=== PATIENT | female | born 1960 | race Caucasian/White ===

== ENCOUNTER → 2016-08-22 | Outpatient (CLI) | payer BC ==
--- NOTE | 2016-08-26 07:25 | MM ---
Reason for exam: screening (asymptomatic). Last mammogram was performed 1 year ago. History: Patient is postmenopausal. Family history of premenopausal breast cancer in maternal cousin at age 25. Took estrogen for 1 year 6 months beginning at age 38. Physical Findings: A clinical breast exam by your physician is recommended on an annual basis and results should be correlated with mammographic findings. MG 3D Screening Mammo W/Cad Bilateral CC and MLO view(s) were taken. Prior study comparison: August 09, 2015, bilateral MG screening mammo w CAD. August 02, 2014, bilateral MG screening mammo w CAD. July 15, 2013, bilateral MG screening mammo w CAD. There are scattered fibroglandular densities. No significant changes when compared with prior studies. ASSESSMENT: Negative, BI-RAD 1 RECOMMENDATION: Routine screening mammogram of both breasts in 1 year.
== END | disposition home or self-care (01) ==
LOC: RADMAMWWP 14:30
PROVIDERS: ATTEND Internal Medicine Geriatric Medicine
DX: Z12.31 Encounter for screening mammogram for malignant neoplasm of breast (principal)
CPT/HCPCS: 77063; G0202

== ENCOUNTER → 2016-11-02 | Outpatient (CLI) | payer BC ==
[2016-11-02 09:13] LABS: Basophils % (A) 1 %; CH 31.7; CHCM 33.8; Eosinophils # (A) 0.1 k/uL (0-0.7); Eosinophils % (A) 3 %; HCT 41.9 % (34.0-46.0); HDW 2.77; HGB 14.1 gm/dL (11.4-16.0); Luc # (Auto) 0.09; Luc % (Auto) 2; Lymphocytes # (A) 1.6 k/uL (1.0-4.8); Lymphocytes % (A) 38 %; MCH 31.8 pg (25.0-35.0); MCHC 33.7 g/dL (31.0-37.0); MCV 94.3 fL (80.0-100.0); Mean Platelet Volume 6.6; Monocytes # (A) 0.2 k/uL (0-1.0); Monocytes % (A) 6 %; Neutrophils # (A) 2.2 k/uL (1.3-7.7); Neutrophils % (A) 52 %; RBC 4.44 m/uL (3.80-5.40); RDW 13.1 % (11.5-15.5); WBC 4.3 k/uL (3.8-10.6); WBC (Perox) 4.43
[2016-11-02 09:30] LABS: ALT 38 U/L (9-52); AST 25 U/L (14-36); Alkaline Phosphatase 55 U/L (38-126); Anion Gap 10 mmol/L; Blood Urea Nitrogen 12 mg/dL (7-17); Calcium 10.2 mg/dL (8.4-10.2); Carbon Dioxide 28 mmol/L (22-30); Chloride 105 mmol/L (98-107); Cholesterol 204 mg/dL (<200); Glucose 94 mg/dL (74-99); HDL Cholesterol 63 mg/dL (40-60); Non-African American GFR(MDRD) >60 (>60 ml/min/1.73 sqM); Potassium 4.7 mmol/L (3.5-5.1); Sodium 143 mmol/L (137-145); Total Bilirubin 0.4 mg/dL (0.2-1.3); Total Protein 6.9 g/dL (6.3-8.2)
[2016-11-02 11:41] LABS: Hemoglobin A1C 5.3 % (4.2-6.1)
== END | disposition home or self-care (01) ==
LOC: LABWHC1 08:41
PROVIDERS: ATTEND Internal Medicine Geriatric Medicine
DX: E78.5 Hyperlipidemia, unspecified (principal); I10 Essential (primary) hypertension; R79.89 Other specified abnormal findings of blood chemistry
CPT/HCPCS: 36415; 80053; 80061; 83036; 84439; 84443; 85025

== ENCOUNTER 2017-04-06 18:52 | Observation (INO) | payer BC ==
[2017-04-06] MEDS ORDERED: MORPHINE SULFATE 4 MG/ML SYRINGE IV STA (19:32)
[2017-04-06] MEDS ORDERED: ONDANSETRON 4 MG/2 ML VIAL IVP STA (19:32)
[2017-04-06] MEDS ORDERED: SODIUM CHLORIDE 0.9% 1,000 ML IV STA (19:32)
[2017-04-06] MEDS ORDERED: ASPIRIN 81 MG PO STA (19:32)
[2017-04-06] MEDS ORDERED: NITROGLYCERIN OINT 1 INCH/GM PACKET TOPICAL STA (19:32)
[2017-04-06 19:55] LABS: Basophils % (A) 1 %; Eosinophils # (A) 0.1 k/uL (0-0.7); Eosinophils % (A) 2 %; HGB 12.8 gm/dL (11.4-16.0); Lymphocytes # (A) 2.7 k/uL (1.0-4.8); Lymphocytes % (A) 43 %; MCH 30.8 pg (25.0-35.0); MCHC 32.7 g/dL (31.0-37.0); MCV 94.2 fL (80.0-100.0); Mean Platelet Volume 6.9; Monocytes # (A) 0.3 k/uL (0-1.0); Monocytes % (A) 5 %; Neutrophils % (A) 49 %; Platelet Count 225 k/uL (150-450); RBC 4.14 m/uL (3.80-5.40); RDW 12.8 % (11.5-15.5); WBC 6.2 k/uL (3.8-10.6)
--- NOTE | 2017-04-06 19:56 | XR ---
EXAMINATION TYPE: XR chest 2V DATE OF EXAM: 04/06/2017 COMPARISON: 01/16/2015 HISTORY: Chest pain and left arm heaviness TECHNIQUE: Frontal and lateral views of the chest are obtained. FINDINGS: There is no focal air space opacity, pleural effusion, or pneumothorax seen. The cardiac silhouette size is enlarged. The osseous structures are intact. Postsurgical changes of the right d istal clavicle or chronic acromioclavicular separation is again noted. Mild multilevel degenerative c hanges of the thoracic spine are seen. IMPRESSION: Cardiomegaly with no acute pulmonary process.
[2017-04-06 19:58] LABS: D-Dimer 0.28 mg/L FEU (<0.60)
[2017-04-06 20:02] LABS: Prothrombin Time 9.7 sec (9.0-12.0)
[2017-04-06 20:03] LABS: Partial Thromboplastin Time 22.5 sec (22.0-30.0)
[2017-04-06 20:10] LABS: ALT 33 U/L (9-52); AST 29 U/L (14-36); Albumin 4.2 g/dL (3.5-5.0); Alkaline Phosphatase 63 U/L (38-126); Anion Gap 12 mmol/L; Blood Urea Nitrogen 15 mg/dL (7-17); Carbon Dioxide 26 mmol/L (22-30); Chloride 105 mmol/L (98-107); Glucose 97 mg/dL (74-99); Potassium 3.5 mmol/L (3.5-5.1); Sodium 143 mmol/L (137-145); Total Bilirubin 0.2 mg/dL (0.2-1.3)
[2017-04-06 20:15] LABS: Creatine Kinase 89 U/L (30-135)
--- NOTE | 2017-04-06 20:27 | ED ---
Chest Pain HPI - General Chief Complaint: Chest Pain Stated Complaint: Chest pain Time Seen by Provider: 04/06/17 19:12 Source: patient Mode of arrival: wheelchair Limitations: no limitations - History of Present Illness Initial Comments: 56 years old female presented with the chest pain that started about Ervin 30 minutes prior to arrival her blood pressure was quite high he was 206/89 chest pain and some numbness and some pain in the left arm she stating chest pain is still 6/10 and she is nauseous no vomiting she has some cold sweats. She does have a history of coronary artery disease in the family her brother at the age of 51 with a massive heart attack mom and the cornea artery disease at age of 60 and she has a history of hypertension. Denies any headaches no blurred vision no stiff neck is complaining about the chest pain gets worse with deep breaths - Related Data Home Medications Medication Instructions Recorded Confirmed Lisinopril [Zestril] 10 mg PO DAILY 11/12/14 04/06/17 Calcium Carbonate [Calcium] 600 mg PO DAILY 04/06/17 04/06/17 Simvastatin [Zocor] 40 mg PO DAILY 04/06/17 04/06/17 Tiotropium 18 Mcg/Puff [Spiriva] 1 cap INHALATION RT-DAILY 04/06/17 04/06/17 Allergies Allergy/AdvReac Type Severity Reaction Status Date / Time azithromycin Allergy Unknown Verified 04/06/17 19:34 Penicillins Allergy Unknown Verified 04/06/17 19:34 Sulfa (Sulfonamide Allergy Unknown Verified 04/06/17 19:34 Antibiotics) Review of Systems ROS Statement: Those systems with pertinent positive or pertinent negative responses have been documented in the HPI. ROS Other: All systems not noted in ROS Statement are negative. EKG Findings - EKG Comments: EKG Findings:: I'm EKG is a normal sinus rhythm with some sinus arrhythmia ventricular rate is 70 DC interval is 134 QRS duration is 80 QT/QTC 390/425 of this EKG reveals some T-wave inversion in lead [address] elevation or ST depression noticed in this EKG noticed. The R-wave Past Medical History Past Medical History: Hypertension Additional Past Medical History / Comment(s): Migraines History of Any Multi-Drug Resistant Organisms: None Reported Past Surgical History: Section, Hysterectomy, Orthopedic Surgery Additional Past Surgical History / Comment(s): Right shoulder, right foot, right knee Past Psychological History: No Psychological Hx Reported Smoking Status: Never smoker Past Alcohol Use History: None Reported Past Drug Use History: None Reported General Exam - General Exam Comments Initial Comments: General: The patient is awake and alert, in moderate distress Skin: Skin is warm and dry and no rashes or lesions are noted. Eye: Pupils are equal, round and reactive to light, extra-ocular movements are intact; there is normal conjunctiva bilaterally. Ears, nose, mouth and throat: There are moist mucous membranes and no oral lesions. Neck: The neck is supple, there is no tenderness or JVD. Cardiovascular: There is a regular rate and rhythm. No murmur, rub or gallop is appreciated. Respiratory: To auscultation bilateral, no wheezing no rhonchi no distress respiratory lemos noticed Gastrointestinal: Soft, non-distended, non-tender abdomen without masses or organomegaly noted. There is no rebound or guarding present. Bowel sounds are unremarkable. Back: There is no tenderness to palpation in the midline. There is no obvious deformity. Musculoskeletal: Normal ROM, no tenderness, There is no pedal edema. There is no calf tenderness or swelling. No cords were appreciated. Neurological: CN II-XII intact, Cranial nerves III through XII are intact. There are no obvious motor or sensory deficits. Coordination appears grossly intact. Speech is normal. Psychiatric: Cooperative, appropriate mood & affect, normal judgment. Limitations: no limitations Course Vital Signs 04/06/17 04/06/17 18:53 19:52 Temperature 97 F L Pulse Rate 102 H 82 Respiratory 20 18 Rate Blood Pressure 206/89 172/83 O2 Sat by Pulse 99 98 Oximetry Is reassessed at term 2019, EKG is unremarkable d-dimer is unremarkable CBC and compressive metabolic panel absolutely normal chest x-ray showed mild cardiomegaly troponin is still pending His back which is negative patient still has a chest pain it's a lot better is 2 /10 considering that she needs to be heparinized to see cardiology in the morning spoke with the Dr. 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, on arrival to the ER blood pressure was 205 systolic chest pain was 6/ 10 and she got some nitro she got some aspirin and now at 2030 she still has a chest pain and very similar 1-03/22 she has a family history she lost her brother to myocardial infarction at the age of 51 and she 76 now she has a lot of secondhand secondhand smoke exposure from her family, considering her chest pain a very high blood pressure with the concern of ischemic heart disease she will be heparinized cardiology be consulted since chest pain is better instead of nitro infusion she will just use the nitro paste, this was discussed with the Dr. Weber she agrees with the plan Disposition Clinical Impression: Chest pain, Hypertension Disposition: ADMITTED IP TO THIS HOSP Condition: Good Referrals: Dieudonne Mccracken MD [Primary Care Provider] - 1-2 days
[2017-04-06 20:28] LABS: Creatine Kinase MB 0.7 ng/mL (0.0-2.4); Troponin I <0.012 ng/mL (0.000-0.034)
[2017-04-06] MEDS ORDERED: HEPARIN SODIUM,PORCINE 5,000 UNIT/ML 1 ML VIAL IV ONE (20:38)
[2017-04-06] MEDS ORDERED: NITROGLYCERIN SL TABS 0.4 MG TAB SUBLINGUAL PRN (20:38)
[2017-04-06] MEDS ORDERED: HEPARIN SOD,PORK IN 0.45% NACL 25,000 UNIT in 0.45% NACL 1 500ML.BAG IV SCH (20:45)
[2017-04-06] MEDS ORDERED: LISINOPRIL 10 MG TAB PO STA (20:56)
[2017-04-07] MEDS ORDERED: ACETAMINOPHEN TAB 325 MG TAB PO PRN (01:10)
[2017-04-07 02:47] LABS: Creatine Kinase 63 U/L (30-135)
[2017-04-07 03:00] LABS: Creatine Kinase MB 0.5 ng/mL (0.0-2.4); Troponin I <0.012 ng/mL (0.000-0.034)
[2017-04-07 07:27] LABS: Cholesterol 137 mg/dL (<200); HDL Cholesterol 43 mg/dL (40-60); LDL Cholesterol,Calculated 75 mg/dL (0-99); Triglycerides 93 mg/dL (<150)
[2017-04-07 07:37] LABS: Creatine Kinase 64 U/L (30-135)
[2017-04-07 07:50] LABS: Troponin I <0.012 ng/mL (0.000-0.034)
[2017-04-07 07:58] LABS: Creatine Kinase MB 0.9 ng/mL (0.0-2.4)
[2017-04-07 08:04] VITALS: RESP 18
[2017-04-07] MEDS ORDERED: LISINOPRIL 10 MG TAB PO SCH (09:00)
[2017-04-07] MEDS ORDERED: CALCIUM CARBONATE 500 MG CHEWABLE PO SCH (09:00)
[2017-04-07] MEDS ORDERED: ASPIRIN 325 MG TAB PO SCH (09:00)
[2017-04-07] MEDS ORDERED: ATORVASTATIN 20 MG TAB PO SCH (09:00)
[2017-04-07] MEDS ORDERED: ASPIRIN 81 MG PO SCH (09:00)
[2017-04-07] MEDS: IPRATROPIUM 0.5 MG/2.5 ML NEBU INHALATION SCH ×2 (09:01→12:27)
--- NOTE | 2017-04-07 10:19 | CONS ---
CONSULTATION Ms. Rodriguez is a 56-year-old female, known history of hypertension, hyperlipidemia, family history of coronary artery disease, who presented with symptoms of chest discomfort radiating to the left shoulder. The discomfort started yesterday on and off for over an hour and came into the emergency room. She has no clear associated dyspnea. No dizziness. No palpitations at home. She checked her blood pressure and was elevated. She is average in exercise tolerance, has no exertional chest discomfort. She has no prior history of cardiac disease. No history of PND, orthopnea, or peripheral edema. Her coronary risk factors are positive for hypertension, hyperlipidemia, family history of premature coronary disease in her mother and her brother. She is a nonsmoker. MEDICATION: At home include Zocor 40 mg daily, lisinopril 10 mg daily, calcium and Spiriva. REVIEW OF SYSTEMS: RESPIRATORY system: She had a cough today, but not yesterday. She has no history of documented asthma, emphysema. No bronchitis. GI system: No recent GI bleeding. No peptic ulcer disease. system: No dysuria or hematuria. Nervous system: No history of stroke or seizure. PHYSICAL EXAMINATION: She is a 56-year-old female, alert, oriented, in no apparent distress. Blood pressure 125/70 with a heart in 70, afebrile. HEAD: Normocephalic. Eyes: Sclerae anicteric. Neck: Good carotid upstroke. No bruit. No jugular venous distention. LUNGS: Clear to auscultation. HEART: Regular rhythm S1, S2. No S3, no S4. No rub. Chest wall with mild chest wall tenderness over the left side. ABDOMEN: Soft, nontender, obese. No organomegaly. EXTREMITIES: No edema. Intact distal pulses. LAB DATA: Lab data revealed troponin less than 0.012 for 3 samples. Cholesterol 137, LDL of 75, BUN and creatinine 15 and 0.8. Potassium 3.5, hemoglobin of 12.8. EKG revealed a sinus mechanism. Borderline left axis deviation, poor R wave progression. Chest x-ray revealed no acute infiltrate. IMPRESSION: 1. Chest discomfort of unclear etiology in a patient with coronary risk factors. 2. Hypertension. 3. Hyperlipidemia. 4. Family history of premature coronary artery disease. RECOMMENDATIONS: I will stop the heparin and I will proceed with stress echocardiogram. If there is no evidence of stress-induced ischemia, then no further cardiac workup will be needed. Thank you for this consult. We will follow with you. MMNETTAL / IJN: [id number] /
[2017-04-07 12:11] VITALS: BP 107/62; PULSE 64; TEMP 98
--- NOTE | 2017-04-07 12:11 | ECHOF ---
Referral Reason:cp MEASUREMENTS -------- HEIGHT: 157.5 cm WEIGHT: 72.6 kg BP: 125/75 RVIDd: 2.7 cm (< 3.3) IVSd: 0.9 cm (0.6 - 1.1) LVIDd: 4.4 cm (3.9 - 5.3) LVPWd: 0.9 cm (0.6 - 1.1) IVSs: 1.5 cm LVIDs: 2.4 cm LVPWs: 1.6 cm LAESV Index (A-L): 21.78 ml/m Ao Diam: 2.7 cm (2.0 - 3.7) AV Cusp: 1.4 cm (1.5 - 2.6) LA Diam: 3.5 cm (2.7 - 3.8) EPSS: 0.3 cm MV E Ziggy: 1.04 m/s MV DecT: 240 ms MV A Ziggy: 0.94 m/s MV E/A Ratio: 1.11 RAP: 5.00 mmHg RVSP: 36.54 mmHg MV EF SLOPE: 94.68 mm/s (70 - 150) MV EXCURSION: 1.47 cm (> 18.000) FINDINGS -------- Sinus rhythm. This was a technically adequate study. The left ventricular size is normal. Left ventricular wall thickness is normal. Overall left vent ricular systolic function is normal with, an EF between 55 - 60 %. The right ventricle is normal in size and function. Normal LA size by volume 22+/-6 ml/m2. The right atrium is normal in size. The aortic valve is trileaflet, and appears structurally normal. No aortic stenosis or regurgitation. The mitral valve is normal. Mild mitral regurgitation is present. Mild tricuspid regurgitation present. There is mild pulmonary hypertension. The right ventricular systolic pressure, as measured by Doppler, is 36.54mmHg. Trace/mild (physiologic) pulmonic regurgitation. The aortic root size is normal. Normal inferior vena cava with normal inspiratory collapse consistent with estimated right atrial pre ssure of 5 mmHg. There is no pericardial effusion. CONCLUSIONS -------- 1. Sinus rhythm. 2. This was a technically adequate study. 3. The left ventricular size is normal. 4. Left ventricular wall thickness is normal. 5. Overall left ventricular systolic function is normal with, an EF between 55 - 60 %. 6. Normal LA size by volume 22+/-6 ml/m2. 7. The aortic valve is trileaflet, and appears structurally normal. No aortic stenosis or regurgitati on. 8. Mild mitral regurgitation is present. 9. Mild tricuspid regurgitation present. 10. There is mild pulmonary hypertension. 11. Trace/mild (physiologic) pulmonic regurgitation. 12. The aortic root size is normal. 13. There is no pericardial effusion. [facility] [employer]: Christiano Hargrove RDCS
--- NOTE | 2017-04-07 13:10 | ECHOS ---
STRESS ECHOCARDIOGRAM DATE OF SERVICE: 04/07/2017 INDICATIONS: MEDICATIONS: BASELINE HEART RATE: 69 BASELINE BLOOD PRESSURE: 128/76 MAXIMUM HEART RATE: 155 MAXIMUM BLOOD PRESSURE: 194/83 85% MPHR: 139 100% MPHR: 163 METS: 8.3 MAXIMUM STAGE REACHED: III TOTAL EXERCISE TIME: 7 minutes CLINICAL INFORMATION: Baseline rhythm is sinus mechanism, rate 69, normal axis, intervals, poor R progression. Baseline blood pressure 128/76 mmHg. Patient exercised on Zan protocol for 7 minutes reaching peak rate of 155 beats per minute, which is equal to 95% maximum predicted heart rate. Peak blood pressure 194/83 mmHg. Test was terminated secondary to fatigue. There was no chest pain. Electrocardiograph monitoring revealed no evidence of diagnostic ischemic ST deviation. Baseline echocardiogram revealed normal wall thickness and motion. At peak exercise, there was normal wall motion augmentation with no hypokinesis or dyskinesis. CONCLUSION: 1. Average exercise tolerance with normal electrocardiograph response to exercise. 2. Normal stress echocardiogram with no evidence of stress induced ischemia. MMODL / IJN: [id number] /
--- NOTE | 2017-04-08 08:55 | P.HPIM ---
History of Present Illness H&P Date: 04/07/17 Chief Complaint: Chest pain This is a 56-year-old female patient of Dr. Mccracken with past medical history of hypertension, migraine headaches. Patient states that she was sitting down and will pain pills on her tablet and she developed chest pain. She denies any stress. She said they had up birthday green party and had people over all day and everything was good. She checked her blood pressure was 220/106. She is on lisinopril but denies missing any dosing. She came into [facility] emergency center for evaluation. CBC and chemistry panel were within normal limits. Troponin negative on 3 draws. Triglycerides 93, cholesterol 137, LDL 75, HDL 43. Patient was placed on the observation unit and seen by Dr. Cabrera. Echocardiogram reveals EF of 55-60%, mild tricuspid regurgitation, mild mitral regurgitation. Patient underwent a stress echocardiogram that was negative and patient will be discharged home today in stable condition. Review of Systems All systems: negative Constitutional: Denies anorexia, Denies chills, Denies fatigue, Denies fever, Denies lethargy, Denies malaise, Denies night sweats, Denies poor appetite, Denies sweats, Denies weakness, Denies weight loss Eyes: denies blurred vision, denies pain Ears, nose, mouth and throat: Denies dental pain, Denies headache, Denies mouth pain, Denies sore throat Cardiovascular: Reports chest pain, Reports high blood pressure, Denies decreased exercise tolerance, Denies dyspnea on exertion, Denies edema, Denies irregular heart beat, Denies leg edema, Denies lightheadedness, Denies paroxysmal nocturnal dyspnea, Denies shortness of breath, Denies syncope Respiratory: Denies congestion, Denies cough, Denies cough with sputum, Denies dyspnea, Denies excessive sputum, Denies hemoptysis, Denies home oxygen, Denies wheezing Gastrointestinal: Denies abdominal pain, Denies diarrhea, Denies nausea, Denies vomiting Genitourinary: Denies dysuria, Denies hematuria Musculoskeletal: Denies myalgias Integumentary: Denies pruritus, Denies rash Neurological: Denies numbness, Denies weakness Psychiatric: Denies anxiety, Denies depression Endocrine: Denies fatigue, Denies weight change Past Medical History Past Medical History: Hypertension Additional Past Medical History / Comment(s): Migraines History of Any Multi-Drug Resistant Organisms: None Reported Past Surgical History: Section, Hysterectomy, Orthopedic Surgery Additional Past Surgical History / Comment(s): Right shoulder, right foot, arthroscopy right knee x 3 , right elbow Past Anesthesia/Blood Transfusion Reactions: No Reported Reaction Past Psychological History: No Psychological Hx Reported Smoking Status: Never smoker Past Alcohol Use History: None Reported Additional Past Alcohol Use History / Comment(s): Patient is a lifelong nonsmoker. She denies any medical marijuana, marijuana, street drug use. She drinks alcohol occasionally. Past Drug Use History: None Reported - Past Family History Mother Family Medical History: Myocardial Infarction (SD) Additional Family Medical History / Comment(s): Mother had several MIs by the time she was 60 as well as stroke. Brother(s) Family Medical History: Myocardial Infarction (SD) Additional Family Medical History / Comment(s): Patient has 1 brother that at age 51 from a myocardial infarction. Patient has a second brother with no major medical problems. Sister(s) Additional Family Medical History / Comment(s): Patient has one sister with cervical cancer. Father Additional Family Medical History / Comment(s): Father at age 37 from end- stage renal disease secondary to a staph infection as a child. Patient has 3 sons and one has Crohn's. Medications and Allergies Home Medications Medication Instructions Recorded Confirmed Type Lisinopril [Zestril] 10 mg PO DAILY 11/12/14 04/06/17 History Calcium Carbonate [Calcium] 600 mg PO DAILY 04/06/17 04/06/17 History Simvastatin [Zocor] 40 mg PO DAILY 04/06/17 04/06/17 History Tiotropium 18 Mcg/Puff [Spiriva] 1 cap INHALATION RT-DAILY 04/06/17 04/06/17 History Allergies Allergy/AdvReac Type Severity Reaction Status Date / Time azithromycin Allergy Unknown Verified 04/06/17 19:34 Penicillins Allergy Unknown Verified 04/06/17 19:34 Sulfa (Sulfonamide Allergy Unknown Verified 04/06/17 19:34 Antibiotics) Physical Exam Vitals: Vital Signs Temp Pulse Pulse Resp BP BP Pulse Ox 04/07/17 12:00 98.0 F 64 18 107/62 98 04/07/17 09:13 72 04/07/17 09:03 72 04/07/17 08:00 97.5 F L 74 18 125/75 99 04/07/17 03:40 97.6 F 69 16 113/56 97 04/07/17 03:16 65 16 04/06/17 23:40 66 16 04/06/17 23:36 97.7 F 67 16 108/57 98 04/06/17 22:15 76 16 04/06/17 21:52 97.7 F 77 16 142/73 99 04/06/17 21:21 97.7 F 77 18 164/79 99 04/06/17 19:52 82 18 172/83 98 04/06/17 18:53 97 F L 102 H 20 206/89 99 Intake and Output 04/07/17 04/07/17 04/07/17 06:59 14:59 22:59 Intake Total 240 Balance 240 Intake: Oral 240 Other: # Voids 3 Gen: This is a 56-year-old female. She is sitting up in bed and appears to be comfortable and in no acute distress. HEENT: Head is atraumatic, normocephalic. Pupils equal, round. Sclerae is anicteric. NECK: Supple. No JVD. No lymphadenopathy. No thyromegaly. LUNGS: Clear to auscultation. No wheezes or rhonchi. No intercostal retractions. HEART: Regular rate and rhythm. No murmur. ABDOMEN: Soft. Bowel sounds are present. No masses. No tenderness. EXTREMITIES: No pedal edema. No calf tenderness. NEUROLOGICAL: Patient is awake, alert and oriented x3. Cranial nerves 2 through 12 are grossly intact. Results CBC & Chem 7: 04/06/17 19:16 04/06/17 19:16 Labs: Abnormal Lab Results - Last 24 Hours (Table) 04/07/17 Range/Units 03:29 APTT 69.4 H (22.0-30.0) sec Thrombosis Risk Factor Assmnt - Choose All That Apply Each Factor Represents 1 point: Age 41-60 years, Obesity (BMI >25) Thrombosis Risk Factor Assessment Total Risk Factor Score: 2 Thrombosis Risk Factor Assessment Level: Low Risk Assessment and Plan Plan: 1. Uncontrolled hypertension. Blood pressure has been improved with no change in medication. 2. Chest pain most likely secondary to hypertension. 3. History of migraine headaches, stable. Patient placed on the observation unit. Discharge plan: Return home Impression and plan of care have been directed as dictated by the signing physician. Shahana Ann nurse practitioner acting as scribe for signing physician.
== END 2017-04-07 15:29 | disposition home or self-care (01) ==
LOC: EC 18:52 → 3OBS 20:38
PROVIDERS: ADMIT Family Medicine; ATTEND Family Medicine
DX: R07.89 Other chest pain (principal); R07.9 Chest pain, unspecified; I10 Essential (primary) hypertension; R20.0 Anesthesia of skin; M79.602 Pain in left arm; R11.0 Nausea; R05 Cough; R61 Generalized hyperhidrosis; E78.5 Hyperlipidemia, unspecified; Z77.22 Contact with and (suspected) exposure to environmental tobacco smoke (acute) (chronic); G43.909 Migraine, unspecified, not intractable, without status migrainosus; E66.9 Obesity, unspecified; Z68.29 Body mass index [BMI] 29.0-29.9, adult; I08.1 Rheumatic disorders of both mitral and tricuspid valves; Z79.899 Other long term (current) drug therapy; Z88.0 Allergy status to penicillin; Z88.2 Allergy status to sulfonamides; Z88.1 Allergy status to other antibiotic agents; Z82.49 Family history of ischemic heart disease and other diseases of the circulatory system; Z80.49 Family history of malignant neoplasm of other genital organs; Z82.3 Family history of stroke
CPT/HCPCS: 99291; 96375 ×3; 96361 ×3; 96376 ×2; 96365 ×2; 96366 ×2; 36415; 94640; 93005; 93017; 93306; 93350; 85379; 80061; 80053; 82550 ×2; 82553 ×2; 83735; 84484 ×2; 85025; 85610; 85730 ×2; 71046; G0378 ×2; J2270; J1644 ×2; J2405

== ENCOUNTER → 2017-08-02 | Outpatient (CLI) | payer BC ==
[2017-08-02 09:31] LABS: Basophils % (A) 0 %; Eosinophils # (A) 0.1 k/uL (0-0.7); Eosinophils % (A) 3 %; HCT 40.3 % (34.0-46.0); HGB 13.6 gm/dL (11.4-16.0); Lymphocytes # (A) 1.4 k/uL (1.0-4.8); Lymphocytes % (A) 31 %; MCH 31.1 pg (25.0-35.0); MCHC 33.7 g/dL (31.0-37.0); MCV 92.5 fL (80.0-100.0); Mean Platelet Volume 6.7; Monocytes # (A) 0.3 k/uL (0-1.0); Monocytes % (A) 6 %; Neutrophils # (A) 2.8 k/uL (1.3-7.7); Neutrophils % (A) 59 %; Platelet Count 224 k/uL (150-450); RBC 4.36 m/uL (3.80-5.40); RDW 13.1 % (11.5-15.5); WBC 4.7 k/uL (3.8-10.6)
[2017-08-02 09:41] LABS: ALT 29 U/L (9-52); AST 24 U/L (14-36); Albumin 4.2 g/dL (3.5-5.0); Alkaline Phosphatase 44 U/L (38-126); Anion Gap 10 mmol/L; Blood Urea Nitrogen 17 mg/dL (7-17); Calcium 9.9 mg/dL (8.4-10.2); Carbon Dioxide 27 mmol/L (22-30); Chloride 105 mmol/L (98-107); Cholesterol 190 mg/dL (<200); Glucose 99 mg/dL (74-99); HDL Cholesterol 57 mg/dL (40-60); LDL Cholesterol,Calculated 106 mg/dL (0-99); Potassium 5.2 mmol/L (3.5-5.1); Sodium 142 mmol/L (137-145); Total Bilirubin 0.4 mg/dL (0.2-1.3); Total Protein 6.5 g/dL (6.3-8.2); Triglycerides 134 mg/dL (<150)
[2017-08-02 09:57] LABS: T4, Free (Free Thyroxine) 0.99 ng/dL (0.78-2.19)
[2017-08-02 18:23] LABS: Hemoglobin A1C 5.3 % (4.0-6.0)
== END | disposition home or self-care (01) ==
LOC: LABWHC1 09:13
PROVIDERS: ATTEND Internal Medicine Geriatric Medicine
DX: E78.5 Hyperlipidemia, unspecified (principal); K21.9 Gastro-esophageal reflux disease without esophagitis; R79.89 Other specified abnormal findings of blood chemistry
CPT/HCPCS: 36415; 80053; 80061; 83036; 84439; 84443; 85025

== ENCOUNTER → 2017-08-21 | Outpatient (CLI) | payer BC | END | disposition home or self-care (01) | LOC: LABWHC1 08:51 | PROVIDERS: ATTEND Internal Medicine Geriatric Medicine | DX: E87.5 Hyperkalemia (principal) | CPT/HCPCS: 36415; 84132 ==

== ENCOUNTER → 2017-09-03 | Outpatient (CLI) | payer BC ==
--- NOTE | 2017-09-03 16:13 | BD ---
EXAMINATION TYPE: Axial Bone Density DATE OF EXAM: 09/03/2017 COMPARISON: NONE CLINICAL HISTORY: Height: 62 Weight: 159.0 FRAX RISK QUESTIONS: Alcohol (3 or more units per day): no Family History (Parent hip fracture): no Glucocorticoids (More than 3mos): no (Ex: prednisone, prednisolone, methylprednisolone, dexamethasone, and hydrocortisone). History of Fracture in Adulthood: yes Secondary Osteoporosis: 1. Type 1 Diabetes: no 2. Hyperthyroidism: no 3. Menopause before 45: yes 4. Malnutrition: no 5. Chronic liver disease: no Rheumatoid Arthritis: no Current Tobacco Use: no RISK FACTORS HISTORY OF: Hip Fracture (Right/Left): yes When: Family History of Osteoporosis: yes Active: yes Diet low in dairy products/other sources of calcium: yes Postmenopausal woman: hysterectomy age 33 Lost more than 2 inches in height since high school: no MEDICATIONS: lisinopril, simvastatin Additional History: EXAM MEASUREMENTS: Bone mineral densitometry was performed using the [employer] System. Bone mineral density as measured about the Lumbar spine is: ----- L1-L4(G/cm2): 1.054 T Score Values are as follows: ----- L2: -0.8 ----- L3: -0.5 ----- L4: -1.0 ----- L1-L4: -1.0 Bone mineral density has: increased 7.5 % since study of: 05.17.2011 Bone mineral density about the R hip (g/cm2): 0.893 Bone mineral density about the L hip (g/cm2): 0.974 T Score values are as follows: -----R Neck: -1.0 -----L Neck: -0.5 -----R Total: -0.6 -----L Total: 0.3 Bone mineral density has: increased 1.2 % since study of: 05.17.2011 IMPRESSION: Borderline Osteopenia (T Score between -2.5 and -1). There is slightly increased risk of fracture and the patient may be considered for treatment. Re-Screen 2-5 years. NOTE: T-SCORE=SD OF THE YOUNG ADULT MEAN.
--- NOTE | 2017-09-04 10:22 | MM ---
Reason for exam: screening (asymptomatic). Last mammogram was performed 1 year ago. History: Patient is postmenopausal. Family history of premenopausal breast cancer in maternal cousin at age 25. Took estrogen for 1 year 6 months beginning at age 38. Physical Findings: A clinical breast exam by your physician is recommended on an annual basis and results should be correlated with mammographic findings. MG Screening Mammo w CAD Bilateral CC and MLO view(s) were taken. Prior study comparison: August 22, 2016, bilateral MG 3d screening mammo w/cad. August 09, 2015, bilateral MG screening mammo w CAD. There are scattered fibroglandular densities. No significant changes when compared with prior studies. ASSESSMENT: Negative, BI-RAD 1 RECOMMENDATION: Routine screening mammogram of both breasts in 1 year.
== END | disposition home or self-care (01) ==
LOC: RADMAMWWP 06:50
PROVIDERS: ATTEND Internal Medicine Geriatric Medicine
DX: Z12.31 Encounter for screening mammogram for malignant neoplasm of breast (principal); M85.80 Other specified disorders of bone density and structure, unspecified site
CPT/HCPCS: 77067; 77080

== ENCOUNTER → 2017-11-11 | Outpatient (CLI) | payer BC ==
[2017-11-11 13:41] VITALS: BP 121/78; PULSE 79; TEMP 97.6; BMI 29.9
--- NOTE | 2017-11-11 14:18 | P.HPOB ---
History of Present Illness H&P Date: 11/11/17 Chief Complaint: The patient is here for her routine gynecologic exam. This is a 57 year old G3 PIII with an LMP of 1993. The patient is status post LAVH in 1993 and later BSO in 1997, both done for benign reasons. The patient is without gynecologic complaints and denies any significant discomfort with intercourse. Review of Systems The patient has gained 20 pounds over the last 3 years. She denies respiratory , cardiac, or G.I. problems. Past Medical History Past Medical History: Hyperlipidemia, Hypertension Additional Past Medical History / Comment(s): Migraines and osteopenia. 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 No other history of STDs. History of Any Multi-Drug Resistant Organisms: None Reported Past Surgical History: Section (x3), Cholecystectomy, Hysterectomy ( LAVH 1993, BSO 1997.), Orthopedic Surgery (Right shoulder, right foot, arthroscopy right knee x 3 , right elbow), Tonsillectomy (With adenoidectomy) Past Anesthesia/Blood Transfusion Reactions: No Reported Reaction Past Psychological History: No Psychological Hx Reported Smoking Status: Never smoker Past Alcohol Use History: Occasional (4 per month) Additional Past Alcohol Use History / Comment(s): Patient is a lifelong nonsmoker. She denies any medical marijuana, marijuana, street drug use. She drinks alcohol occasionally. 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 - Past Family History Mother Family Medical History: CVA/TIA, Myocardial Infarction ([place]) Additional Family Medical History / Comment(s): Mother had several MIs by the time she was 60 as well as stroke. Maternal grandmother had colon cancer. Brother(s) Family Medical History: Myocardial Infarction ([place]) Additional Family Medical History / Comment(s): Patient has 1 brother that at age 51 from a myocardial infarction. Patient has a second brother with no major medical problems. Sister(s) Family Medical History: Cancer (cervical) Father Family Medical History: Renal Disease (Renal failure) Son(s) Additional Family Medical History / Comment(s): Crohn's disease Medications and Allergies Home Medications Medication Instructions Recorded Confirmed Type Lisinopril [Zestril] 20 mg PO DAILY 11/12/14 11/11/17 History Calcium Carbonate [Calcium] 600 mg PO DAILY 04/06/17 11/11/17 History Simvastatin [Zocor] 40 mg PO DAILY 04/06/17 11/11/17 History Montelukast [Singulair] PO HS 11/11/17 History Allergies Allergy/AdvReac Type Severity Reaction Status Date / Time azithromycin Allergy Unknown Verified 11/11/17 13:36 Penicillins Allergy Unknown Verified 11/11/17 13:36 Sulfa (Sulfonamide Allergy Unknown Verified 11/11/17 13:36 Antibiotics) Exam Vital Signs Temp Pulse BP 11/11/17 13:38 97.6 F 79 121/78 Intake and Output 11/10/17 11/11/17 11/11/17 22:59 06:59 14:59 Other: Weight 74.389 kg Height 5'2", BMI 30.0. This is a well-developed well-nourished white female who is alert and oriented times 3 in no acute distress. HEENT: Within normal limits. NECK: Supple without mass or thyromegaly. CHEST AND LUNGS: Clear to auscultation. HEART: Regular rate and rhythm. BREASTS: Are without mass or discharge. Bilateral central nipple inversion which has been present for a few years. AXILLARY EXAM: Negative for adenopathy. BACK: Negative for CVA tenderness. ABDOMEN: Soft, nontender, without palpable masses. PELVIC EXAM: External genitalia appears normal with mild to moderate atrophy. Vagina appears normal mild to moderate atrophy. There is no evidence of prolapse. Bimanual examination is negative for mass or tenderness. RECTAL EXAM: Rectovaginal exam is negative for mass or tenderness and is negative for occult blood. EXTREMITIES: Nontender. IMPRESSION: 1. 57-year-old menopausal female status post L AVH and later BSO for benign reasons. 2. History of osteopenia. PLAN: 1. Pap smears have been discontinued. 2. Self breast awareness was discussed with the patient. 3. Screening mammogram was done on 09/03/2017 and was benign. She will repeat this in one year. 4. Osteoporosis prevention was discussed. Bone density screening was done on 09/03/2017. She will repeat this in approximately 3 years. 5. She will return in one year.
== END ==
LOC: WWCWWP 13:12
PROVIDERS: ATTEND Obstetrics & Gynecology
DX: Z53.9 Procedure and treatment not carried out, unspecified reason (principal)

== ENCOUNTER → 2018-01-24 | Outpatient (CLI) | payer BC ==
[2018-01-24 09:18] LABS: Basophils % (A) 0 %; Eosinophils # (A) 0.1 k/uL (0-0.7); Eosinophils % (A) 3 %; HGB 13.1 gm/dL (11.4-16.0); Lymphocytes # (A) 1.4 k/uL (1.0-4.8); Lymphocytes % (A) 38 %; MCH 31.3 pg (25.0-35.0); MCHC 33.6 g/dL (31.0-37.0); MCV 93.2 fL (80.0-100.0); Mean Platelet Volume 6.9; Monocytes # (A) 0.2 k/uL (0-1.0); Monocytes % (A) 5 %; Neutrophils # (A) 1.9 k/uL (1.3-7.7); Neutrophils % (A) 52 %; Platelet Count 195 k/uL (150-450); RBC 4.19 m/uL (3.80-5.40); RDW 13.3 % (11.5-15.5); WBC 3.6 k/uL (3.8-10.6)
[2018-01-24 16:55] LABS: Albumin 4.1 g/dL (3.80-4.90); Albumin/Globulin Ratio 2.28 (1.20-2.10); Anion Gap 6.8 mmol/L (4.00-12.00); Calcium 9.4 mg/dL (8.7-10.3); Carbon Dioxide 28.2 mmol/L (21.6-31.8); Globulin 1.8 g/dL (2.1-3.7); Potassium 4.4 mmol/L (3.5-5.5); Total Bilirubin 0.5 mg/dL (0.2-1.2); Total Protein 5.9 g/dL (6.2-8.2)
[2018-01-24 17:15] LABS: Hemoglobin A1C 5.4 % (4.0-6.0)
[2018-01-26 05:20] LABS: Angiotensin-1 Converting Enz. 13 U/L (8-52)
== END | disposition home or self-care (01) ==
LOC: LABWHC1 08:24
PROVIDERS: ATTEND Internal Medicine Geriatric Medicine
DX: J45.909 Unspecified asthma, uncomplicated (principal); R79.9 Abnormal finding of blood chemistry, unspecified; E78.01 Familial hypercholesterolemia
CPT/HCPCS: 36415; 80053; 80061; 82164; 82785; 83036; 85025; 86001; 86606; 86609

== ENCOUNTER → 2018-02-11 | Outpatient (CLI) | payer BC ==
--- NOTE | 2018-02-11 15:17 | XR ---
EXAMINATION TYPE: XR chest 2V DATE OF EXAM: 02/11/2018 COMPARISON: 04/06/2017 TECHNIQUE: PA and lateral views submitted. HISTORY: Cough, bronchitis, asthma FINDINGS: The lungs are clear and there is no pneumothorax, pleural effusion, or focal pneumonia. Hypertrophi c change of the spine. Surgical clips in the abdomen. No overt failure. Biapical pleural thickening. Chronic arthropathy of the shoulders. IMPRESSION: 1. No acute process.
[2018-02-11 20:14] LABS: Gliadin AB IgA, Unit <0.2 U/mL
== END | disposition home or self-care (01) ==
LOC: RADXRMAIN 13:13
PROVIDERS: ATTEND Allergy & Immunology
DX: J45.41 Moderate persistent asthma with (acute) exacerbation (principal); J42 Unspecified chronic bronchitis; K21.9 Gastro-esophageal reflux disease without esophagitis
CPT/HCPCS: 71046; 82784; 83516

== ENCOUNTER → 2018-05-23 | Outpatient (CLI) | payer OTHER | END | disposition home or self-care (01) | LOC: LABWHC1 08:07 | PROVIDERS: ATTEND Internal Medicine Nephrology | DX: Z00.5 Encounter for examination of potential donor of organ and tissue (principal) | CPT/HCPCS: 36415 ==

== ENCOUNTER → 2018-06-03 | Outpatient (CLI) | payer OTHER ==
[2018-06-03 07:34] LABS: Basophils % (A) 1 %; Eosinophils # (A) 0.1 k/uL (0-0.7); Eosinophils % (A) 2 %; HCT 38.8 % (34.0-46.0); HGB 13.2 gm/dL (11.4-16.0); Lymphocytes # (A) 1.5 k/uL (1.0-4.8); Lymphocytes % (A) 37 %; MCH 31.6 pg (25.0-35.0); MCHC 33.9 g/dL (31.0-37.0); MCV 93.1 fL (80.0-100.0); Mean Platelet Volume 6.9; Monocytes # (A) 0.2 k/uL (0-1.0); Monocytes % (A) 5 %; Neutrophils # (A) 2.1 k/uL (1.3-7.7); Neutrophils % (A) 53 %; Platelet Count 209 k/uL (150-450); RBC 4.17 m/uL (3.80-5.40); RDW 13.3 % (11.5-15.5)
[2018-06-03 07:43] LABS: INR 0.9 (<1.2); Partial Thromboplastin Time 22.5 sec (22.0-30.0); Prothrombin Time 9.7 sec (9.0-12.0)
[2018-06-03 08:36] LABS: Appearance,Urine Clear (Clear); Bilirubin,Urine Negative (Negative); Blood,Urine Negative (Negative); Color,Urine Light Yellow; Glucose,Urine (UA) Negative (Negative); Ketones,Urine Negative (Negative); Leukocyte Esterase,Urine Trace (Negative); Nitrite,Urine Negative (Negative); PH, Urine 5.5 (5.0-8.0); Protein,Urine Negative (Negative); Specific Gravity,Urine 1.011 (1.001-1.035); Squamous Epithelial Cell,Urine 1 /hpf (0-4); Urobilinogen,Urine <2.0 mg/dL (<2.0); WBC,Urine 1 /hpf (0-5)
[2018-06-03 11:34] LABS: ALT 19 U/L (8-44); AST 21 U/L (13-35); Albumin/Globulin Ratio 2.53 (1.60-3.17); Alkaline Phosphatase 57 U/L (41-126); Bilirubin, Conjugated <0.20 mg/dL (0.20-0.40); Calcium 9.8 mg/dL (8.7-10.3); Carbon Dioxide 28.4 mmol/L (21.6-31.8); Chloride 106 mmol/L (96-109); Cholesterol 171 mg/dL (0-200); Globulin 1.7 g/dL (1.6-3.3); Glucose 101 mg/dL (70-110); LDL Cholesterol,Calculated 100.2 mg/dL (0.0-131.0); Phosphorus 3.8 mg/dL (2.4-5.1); Potassium 4.8 mmol/L (3.5-5.5); Sodium 143 mmol/L (135-145); Total Bilirubin 0.4 mg/dL (0.3-1.2); Uric Acid 7.5 mg/dL (2.9-7.7)
[2018-06-03 12:02] LABS: Hepatitis B Surface AB- Quant 5.5 mIU/mL; Hepatitis C IgG Antibody Non-Reactive (Non-Reactive)
[2018-06-03 14:57] LABS: HIV 1 AB Non-Reactive (Non-Reactive); HIV AB P24 Non-Reactive (Non-Reactive); HIV P24 AG Non-Reactive (Non-Reactive)
[2018-06-03 15:45] LABS: Hemoglobin A1C 5.4 % (4.0-6.0)
== END | disposition home or self-care (01) ==
LOC: LABWHC1 06:31
PROVIDERS: ATTEND Internal Medicine Nephrology
DX: Z52.4 Kidney donor (principal)
CPT/HCPCS: 36415; 80053; 80061; 81001; 81025; 82043; 82248; 82570; 82610; 83036; 84100; 84550; 85025; 85610; 85730; 86644; 86645; 86664; 86665; 86704; 86706; 86780; 86803; 87086; 87340; 87390

== ENCOUNTER → 2018-10-19 | Outpatient (CLI) | payer BC ==
--- NOTE | 2018-10-19 13:13 | MM ---
Reason for exam: screening (asymptomatic). Last mammogram was performed 1 year and 1 month ago. History: Patient is postmenopausal. Family history of premenopausal breast cancer in maternal cousin at age 25. Took estrogen for 1 year 6 months beginning at age 38. Physical Findings: A clinical breast exam by your physician is recommended on an annual basis and results should be correlated with mammographic findings. MG Screening Mammo w CAD Bilateral CC and MLO view(s) were taken. Prior study comparison: September 03, 2017, bilateral MG screening mammo w CAD. August 22, 2016, bilateral MG 3d screening mammo w/cad. There are scattered fibroglandular densities. Finding: There are vascular calcifications in the left breast. There is no discrete abnormality. ASSESSMENT: Negative, BI-RAD 1 RECOMMENDATION: Routine screening mammogram of both breasts in 1 year.
== END ==
LOC: RADMAMWWP 06:52
PROVIDERS: ATTEND Internal Medicine Geriatric Medicine
DX: Z12.31 Encounter for screening mammogram for malignant neoplasm of breast (principal)
CPT/HCPCS: 77067

== ENCOUNTER → 2019-09-21 | Outpatient (CLI) | payer BC ==
[2019-09-21 08:13] LABS: Basophils % (A) 1 %; Eosinophils # (A) 0.1 k/uL (0-0.7); Eosinophils % (A) 2 %; HCT 40.4 % (34.0-46.0); Lymphocytes # (A) 1.8 k/uL (1.0-4.8); Lymphocytes % (A) 41 %; MCH 30.2 pg (25.0-35.0); MCHC 32.1 g/dL (31.0-37.0); Mean Platelet Volume 7.3; Monocytes # (A) 0.2 k/uL (0-1.0); Monocytes % (A) 5 %; Neutrophils # (A) 2.2 k/uL (1.3-7.7); Neutrophils % (A) 50 %; Platelet Count 219 k/uL (150-450); RDW 12.8 % (11.5-15.5); WBC 4.4 k/uL (3.8-10.6)
[2019-09-21 15:45] LABS: Hemoglobin A1C 5.6 % (4.0-6.0)
[2019-09-21 16:18] LABS: African American GFR (CKD) 70.9 (60.0-200.0); Albumin 4.3 g/dL (3.80-4.90); Albumin/Globulin Ratio 2.05 (1.60-3.17); Anion Gap 9.4 mmol/L (4.00-12.00); Calcium 10.2 mg/dL (8.7-10.3); Carbon Dioxide 27.6 mmol/L (21.6-31.8); Chol/HDL Ratio 3.77; Globulin 2.1 g/dL (1.6-3.3); LDL Cholesterol,Calculated 112.6 mg/dL (0.0-131.0); Non-African American GFR(CKD) 61.2 (60.0-200.0); Potassium 4.7 mmol/L (3.5-5.5); Total Bilirubin 0.4 mg/dL (0.2-1.2); Total Protein 6.4 g/dL (6.2-8.2); VLDL Calculation 31.4 mg/dL (5.00-40.00)
== END | disposition home or self-care (01) ==
LOC: LABWHC1 07:07
PROVIDERS: ATTEND Internal Medicine Geriatric Medicine
DX: E78.01 Familial hypercholesterolemia (principal); R79.9 Abnormal finding of blood chemistry, unspecified; J45.991 Cough variant asthma
CPT/HCPCS: 36415; 80053; 80061; 83036; 84443; 85025

== ENCOUNTER → 2020-01-26 | Outpatient (CLI) | payer BC ==
--- NOTE | 2020-01-27 11:09 | MM ---
Reason for exam: screening (asymptomatic). Last mammogram was performed 1 year and 3 months ago. History: Patient is postmenopausal. Family history of premenopausal breast cancer in maternal cousin at age 25. Took estrogen for 1 year 6 months beginning at age 38. Physical Findings: A clinical breast exam by your physician is recommended on an annual basis and results should be correlated with mammographic findings. MG Screening Mammo w CAD Bilateral CC and MLO view(s) were taken. Prior study comparison: October 19, 2018, bilateral MG screening mammo w CAD. September 03, 2017, bilateral MG screening mammo w CAD. There are scattered fibroglandular densities. No significant changes when compared with prior studies. ASSESSMENT: Negative, BI-RAD 1 RECOMMENDATION: Routine screening mammogram of both breasts in 1 year.
== END | disposition home or self-care (01) ==
LOC: RADMAMWWP 15:26
PROVIDERS: ATTEND Internal Medicine Geriatric Medicine
DX: Z12.31 Encounter for screening mammogram for malignant neoplasm of breast (principal)
CPT/HCPCS: 77067

== ENCOUNTER → 2020-03-02 | Outpatient (CLI) | payer BC ==
[2020-03-02 13:49] LABS: Hemoglobin A1C 5.5 % (4.0-6.0)
[2020-03-02 16:19] LABS: African American GFR (CKD) 80.5 (60.0-200.0); Albumin 4.4 g/dL (3.80-4.90); Albumin/Globulin Ratio 2.44 (1.60-3.17); Anion Gap 7.7 mmol/L (4.00-12.00); BUN/Creat Ratio 14.44 Ratio (12.00-20.00); Calcium 9.8 mg/dL (8.7-10.3); Carbon Dioxide 28.3 mmol/L (21.6-31.8); Chol/HDL Ratio 3.42; Globulin 1.8 g/dL (1.6-3.3); LDL Cholesterol,Calculated 104.4 mg/dL (0.0-131.0); Non-African American GFR(CKD) 69.5 (60.0-200.0); Potassium 4.6 mmol/L (3.5-5.5); Total Bilirubin 0.4 mg/dL (0.2-1.2); Total Protein 6.2 g/dL (6.2-8.2); VLDL Calculation 23.6 mg/dL (5.00-40.00)
== END | disposition home or self-care (01) ==
LOC: LABWHC1 06:59
PROVIDERS: ATTEND Internal Medicine Geriatric Medicine
DX: E78.01 Familial hypercholesterolemia (principal); R73.9 Hyperglycemia, unspecified
CPT/HCPCS: 36415; 80053; 80061; 83036

== ENCOUNTER → 2021-03-30 | Outpatient (CLI) | payer BC ==
--- NOTE | 2021-03-30 12:44 | MM ---
Reason for exam: screening (asymptomatic). Last mammogram was performed 1 year and 2 months ago. History: Patient is postmenopausal. Family history of premenopausal breast cancer in maternal cousin at age 25. Took estrogen for 1 year 6 months beginning at age 38. Physical Findings: A clinical breast exam by your physician is recommended on an annual basis and results should be correlated with mammographic findings. MG 3D Screening Mammo W/Cad Bilateral CC and MLO view(s) were taken. Prior study comparison: January 26, 2020, bilateral MG screening mammo w CAD. October 19, 2018, bilateral MG screening mammo w CAD. There are scattered fibroglandular densities. There is no discrete abnormality. No significant changes when compared with prior studies. ASSESSMENT: Negative, BI-RAD 1 RECOMMENDATION: Routine screening mammogram of both breasts in 1 year.
== END ==
LOC: RADMAMWWP 07:27
PROVIDERS: ATTEND Internal Medicine Geriatric Medicine
DX: Z12.31 Encounter for screening mammogram for malignant neoplasm of breast (principal); Z78.0 Asymptomatic menopausal state; Z80.3 Family history of malignant neoplasm of breast
CPT/HCPCS: 77063; 77067

== ENCOUNTER → 2021-05-07 | Outpatient (CLI) | payer BC ==
--- NOTE | 2021-05-07 10:52 | EST ---
EXERCISE STRESS DATE OF STUDY: 05/07/2021 AGE: 60 SEX: F HT: 5'2". WT: 165 lbs. PROTOCOL: Zan STAGE: 2 DURATION OF EXERCISE: 6:00 HEART RATE REST: 93 BLOOD PRESSURE REST: 147/89 MAXIMUM HEART RATE ACHIEVED: 144 MAXIMUM BLOOD PRESSURE: 207/96 85% MPHR: 135 100% MPHR: 159 METS: 7.1 INDICATIONS: Chest pain. CLINICAL INFORMATION: STRESS DATA: Heart rate is 93. Pressure is 147/89 mmHg. Baseline EKG showed sinus mechanism. The patient exercised on the treadmill according to Zan protocol for a total of 6 minutes and achieved 7 of METS. Max heart rate was 144, which is about 91% of maximum predicted heart rate, and maximum blood pressure was 207/96 mmHg. Clinically the patient did not have any symptoms. The EKG did not show any significant ST or T- wave abnormalities concerning for ischemia. CONCLUSION: 1. Excellent exercise tolerance. 2. Normal EKG in response to exercise. 3. Essentially normal stress test for the patient. MMODL / IJN: [id number] /
== END | disposition home or self-care (01) ==
LOC: RADNMMAIN 08:44
PROVIDERS: ATTEND Internal Medicine Geriatric Medicine
DX: R07.9 Chest pain, unspecified (principal)
CPT/HCPCS: 93017

== ENCOUNTER 2021-08-28 07:03 | Emergency (ER) | payer BC ==
--- NOTE | 2021-08-28 07:21 | ED ---
Extremity Problem HPI - General Chief complaint: Extremity Problem,Nontraumatic Stated complaint: Right Leg Pain Time Seen by Provider: 08/28/21 07:17 Source: patient, RN notes reviewed Mode of arrival: wheelchair Limitations: no limitations - History of Present Illness Initial comments: 61-year-old female sent emergency from chief complaint right calf pain. Patient states started having some discomfort last night worsened overnight. Patient states feels like a charley horse in her right calf denies any trauma no redness no significant swelling is a back pain that is about where it comes retention. No saddle anesthesias. No lower shunted paresthesias. Patient has no history DVT or PE denies any chest pain or shortness breath. - Related Data Home Medications Medication Instructions Recorded Confirmed lisinopriL [Zestril] 20 mg PO DAILY 11/12/14 11/11/17 Calcium Carbonate [Calcium] 600 mg PO DAILY 04/06/17 11/11/17 Simvastatin [Zocor] 40 mg PO DAILY 04/06/17 11/11/17 Montelukast [Singulair] PO HS 11/11/17 Previous Rx's Medication Instructions Recorded Ibuprofen [Motrin] 600 mg PO Q8HR PRN #20 tab 08/28/21 Allergies Allergy/AdvReac Type Severity Reaction Status Date / Time azithromycin Allergy Unknown Verified 08/28/21 07:13 Penicillins Allergy Unknown Verified 08/28/21 07:13 Sulfa (Sulfonamide Allergy Unknown Verified 08/28/21 07:13 Antibiotics) Review of Systems ROS Statement: Those systems with pertinent positive or pertinent negative responses have been documented in the HPI. ROS Other: All systems not noted in ROS Statement are negative. Past Medical History Past Medical History: Hyperlipidemia, Hypertension Additional Past Medical History / Comment(s): Migraines and osteopenia. 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 No other history of STDs. History of Any Multi-Drug Resistant Organisms: None Reported Past Surgical History: Section, Cholecystectomy, Hysterectomy, Orthopedic Surgery, Tonsillectomy Additional Past Surgical History / Comment(s): Right shoulder, right foot, arthroscopy right knee x 3 , right elbow Past Anesthesia/Blood Transfusion Reactions: No Reported Reaction Past Psychological History: No Psychological Hx Reported Past Alcohol Use History: Occasional Past Drug Use History: None Reported - Past Family History Mother Family Medical History: CVA/TIA, Myocardial Infarction ([place]) Additional Family Medical History / Comment(s): Mother had several MIs by the time she was 60 as well as stroke. Maternal grandmother had colon cancer. Brother(s) Family Medical History: Myocardial Infarction ([place]) Additional Family Medical History / Comment(s): Patient has 1 brother that at age 51 from a myocardial infarction. Patient has a second brother with no major medical problems. Sister(s) Family Medical History: Cancer (cervical) Additional Family Medical History / Comment(s): Patient has one sister with cervical cancer. Father Family Medical History: Renal Disease (Renal failure) Additional Family Medical History / Comment(s): Father at age 37 from end- stage renal disease secondary to a staph infection as a child. Patient has 3 sons and one has Crohn's. Son(s) Additional Family Medical History / Comment(s): Crohn's disease General Exam Limitations: no limitations General appearance: alert, in no apparent distress Head exam: Present: atraumatic, normocephalic, normal inspection Eye exam: Present: normal appearance, PERRL, EOMI. Absent: scleral icterus, conjunctival injection, periorbital swelling Respiratory exam: Present: normal lung sounds bilaterally. Absent: respiratory distress, wheezes, rales, rhonchi, stridor Cardiovascular Exam: Present: regular rate, normal rhythm, normal heart sounds. Absent: systolic murmur, diastolic murmur, rubs, gallop, clicks Extremities exam: Present: calf tenderness, other (Pulses equal bilaterally lower extremity no significant swelling that is no change in color or warmth right leg compared to the left, patient has pain with range of motion of her foot in her calf.) Neurological exam: Present: alert, reflexes normal. Absent: motor sensory deficit Skin exam: Present: warm, dry, intact, normal color. Absent: rash Course Vital Signs 08/28/21 07:11 Temperature 97.8 F Pulse Rate 81 Respiratory 18 Rate Blood Pressure 149/79 O2 Sat by Pulse 99 Oximetry Medical Decision Making - Medical Decision Making 61-year-old presented for right calf pain Ultram was performed rule out DVT which is negative for acute DVT. Patient has good pulses, neurovascular intact patient's pain related to right calf strain, skeletal pain. Patient be discharged in stable condition return parameters were discussed. Disposition Clinical Impression: Right calf pain, Strain of right calf muscle Disposition: HOME SELF-CARE Condition: Stable Instructions (If sedation given, give patient instructions): Leg Cramps (ED) Additional Instructions: Please return to the Emergency Department if symptoms worsen or any other concerns. Prescriptions: Ibuprofen [Motrin] 600 mg PO Q8HR PRN #20 tab PRN Reason: Pain Is patient prescribed a controlled substance at d/c from ED?: No Referrals: Dieudonne Mccracken MD [Primary Care Provider] - 1-2 days Time of Disposition: 08:19
--- NOTE | 2021-08-28 07:56 | US ---
EXAMINATION TYPE: US venous doppler duplex LE RT DATE OF EXAM: 08/28/2021 7:20 AM COMPARISON: NONE CLINICAL HISTORY: pain. Pain in rt calf since last night. No hx of DVT. SIDE PERFORMED: Right TECHNIQUE: The lower extremity deep venous system is examined utilizing real time linear array sonog magda with graded compression, doppler sonography and color-flow sonography. VESSELS IMAGED: Common Femoral Vein Deep Femoral Vein Greater Saphenous Vein * Femoral Vein Popliteal Vein Small Saphenous Vein * Proximal Calf Veins (* superficial vessels) Right Leg: Negative for DVT IMPRESSION: Grayscale, color doppler, spectral doppler imaging performed of the deep veins [facility] lower extremity. There is normal flow, compressibility, vascular waveforms.
[2021-08-28] MEDS ORDERED: ACET/COD 300 MG/30 MG STARTER PACK 6 TAB BTL PO STA (08:19)
[2021-08-28 08:36] VITALS: BP 128/74; PULSE 79; RESP 17; TEMP 98
== END 2021-08-28 08:24 | disposition home or self-care (01) ==
LOC: EC 07:03
DX: S86.211A Strain of muscle(s) and tendon(s) of anterior muscle group at lower leg level, right leg, initial encounter (principal); E78.5 Hyperlipidemia, unspecified; I10 Essential (primary) hypertension; Z82.49 Family history of ischemic heart disease and other diseases of the circulatory system; Z88.1 Allergy status to other antibiotic agents; Z88.0 Allergy status to penicillin; Z88.2 Allergy status to sulfonamides
CPT/HCPCS: 99283

== ENCOUNTER → 2021-09-07 | Outpatient (CLI) | payer BC ==
[2021-09-07 10:48] LABS: Basophils # (A) 0.03 X 10*3/uL (0.00-0.10); Basophils % (A) 0.3 %; Eosinophils # (A) 0.08 X 10*3/uL (0.04-0.35); Eosinophils % (A) 0.7 %; HCT 39.3 % (37.2-46.3); HGB 12.8 g/dL (12.0-15.0); Immature Grans, Automated 0.4 %; Lymphocytes # (A) 4.72 X 10*3/uL (0.90-5.00); Lymphocytes % (A) 43.7 %; MCH 30.3 pg (27.0-32.0); MCHC 32.6 g/dL (32.0-37.0); MCV 93.1 fL (80.0-97.0); Mean Platelet Volume 10.4 fL (9.5-12.2); Monocytes # (A) 0.56 X 10*3/uL (0.20-1.00); Monocytes % (A) 5.2 %; NRBC Per 100 WBC 0 /100 WBCS (0.0-0.0); Neutrophils # (A) 5.36 X 10*3/uL (1.80-7.70); Neutrophils % (A) 49.7 %; Platelet Count 227 X 10*3/uL (140-440); RBC 4.22 X 10*6/uL (4.10-5.20); RDW 13.4 % (11.5-14.5); WBC 10.79 X 10*3/uL (4.50-10.00)
[2021-09-07 11:03] LABS: ALT 20 U/L (8-44); AST 13 U/L (13-35); African American GFR (CKD) 79.4 (60.0-200.0); Alkaline Phosphatase 52 U/L (41-126); BUN/Creat Ratio 24.56 Ratio (12.00-20.00); Blood Urea Nitrogen 22.1 mg/dL (9.0-27.0); Calcium 9.3 mg/dL (8.7-10.3); Carbon Dioxide 28.8 mmol/L (20.0-27.5); Chloride 104 mmol/L (96-109); Chol/HDL Ratio 2.21 Ratio; Globulin 2.1 g/dL (1.6-3.3); Glucose 89 mg/dL (70-110); LDL Cholesterol,Calculated 68.8 mg/dL (0.0-131.0); Non-African American GFR(CKD) 68.5 (60.0-200.0); Potassium 4.1 mmol/L (3.5-5.5); Sodium 142 mmol/L (135-145); Total Protein 6.1 g/dL (6.2-8.2)
== END | disposition home or self-care (01) ==
LOC: LABWHC1 06:59
PROVIDERS: ATTEND Internal Medicine Geriatric Medicine
DX: E78.01 Familial hypercholesterolemia (principal); M79.661 Pain in right lower leg; R73.9 Hyperglycemia, unspecified
CPT/HCPCS: 36415; 80053; 80061; 83036; 85025

== ENCOUNTER → 2021-11-20 | Outpatient (CLI) | payer BC ==
[2021-11-20 09:46] LABS: INR 0.9 (<1.2); Partial Thromboplastin Time 22.6 sec (22.0-30.0); Prothrombin Time 10.3 sec (9.0-12.0)
[2021-11-20 14:21] LABS: HCT 38.3 % (37.2-46.3); MCH 30.8 pg (27.0-32.0); MCHC 33.9 g/dL (32.0-37.0); MCV 90.8 fL (80.0-97.0); Mean Platelet Volume 10.7 fL (9.5-12.2); NRBC Per 100 WBC 0 /100 WBCS (0.0-0.0); Platelet Count 165 X 10*3/uL (140-440); RBC 4.22 X 10*6/uL (4.10-5.20); RDW 12.9 % (11.5-14.5)
[2021-11-20 14:28] LABS: Appearance,Urine Clear (Clear); Bilirubin,Urine Negative (Negative); Blood,Urine Negative (Negative); Color,Urine Yellow (Yellow); Ketones,Urine Negative (Negative); Nitrite,Urine Negative (Negative); PH, Urine 5.5 (5.0-8.0); Specific Gravity,Urine 1.018 (1.001-1.030)
[2021-11-20 14:43] LABS: African American GFR (CKD) 91.6 (60.0-200.0); Albumin 4.3 g/dL (3.8-4.9); Albumin/Globulin Ratio 2.05 (1.60-3.17); Anion Gap 9.8 mmol/L (10.00-18.00); BUN/Creat Ratio 10.38 Ratio (12.00-20.00); Blood Urea Nitrogen 8.3 mg/dL (9.0-27.0); Calcium 9.7 mg/dL (8.7-10.3); Carbon Dioxide 26.2 mmol/L (20.0-27.5); Globulin 2.1 g/dL (1.6-3.3); Potassium 4.6 mmol/L (3.5-5.5); Total Bilirubin 0.4 mg/dL (0.30-1.20); Total Protein 6.4 g/dL (6.2-8.2)
== END | disposition home or self-care (01) ==
LOC: LABPAT 08:44
PROVIDERS: ATTEND Orthopaedic Surgery
DX: Z01.818 Encounter for other preprocedural examination (principal); M17.9 Osteoarthritis of knee, unspecified; R94.31 Abnormal electrocardiogram [ECG] [EKG]
CPT/HCPCS: 80053; 81003; 85027; 85610; 85730; 87070; 93005

== ENCOUNTER 2021-12-17 05:35 | Day surgery (SDC) | payer BC ==
[2021-12-10 13:43] VITALS: BMI 31.1
[~2021-12-17 05:35] MED LIST: ACETAMINOPHEN TAB 500 MG TAB PO PRN; GABAPENTIN 300 MG CAP PO PRN; MELOXICAM 7.5 MG TAB PO PRN; TRANEXAMIC ACID IN NACL,ISO-OS 1,000 MG in SALINE 1 100ML.BAG IVPB PRN
[2021-12-17] MEDS ORDERED: ONDANSETRON 4 MG/2 ML VIAL ONE (06:09)
[2021-12-17] MEDS ORDERED: LACTATED RINGERS 1,000 ML IV ONE ×2 (06:27→09:31)
[2021-12-17] MEDS ORDERED: MIDAZOLAM 2 MG/2 ML VIAL IVP ONE (06:34)
[2021-12-17] MEDS ORDERED: ROPIVACAINE 5 MG/ML 30 ML VIAL ONE (06:58)
[2021-12-17] MEDS ORDERED: fentaNYL (PF) 50 MCG/ML 2 ML AMP ONE (06:58)
[2021-12-17] MEDS ORDERED: TRANEXAMIC ACID IN NACL,ISO-OS 1,000 MG/100 ML BAG ONE (06:58)
[2021-12-17] MEDS ORDERED: SODIUM CHLORIDE 0.9% (PF) 10 ML VIAL ONE (06:58)
[2021-12-17] MEDS ORDERED: PROPOFOL 10 MG/ML 20 ML VIAL IV ONE (06:58)
[2021-12-17] MEDS ORDERED: MIDAZOLAM 2 MG/2 ML VIAL ONE (06:58)
[2021-12-17] MEDS ORDERED: ONDANSETRON 4 MG/2 ML VIAL IVP ONE ×3 (07:00→08:50)
[2021-12-17] MEDS ORDERED: DEXAMETHASONE SOD PHOSPHATE 4 MG/ML 1 ML VIAL IVP ONE (07:00)
[2021-12-17] MEDS ORDERED: ceFAZolin 1,000 MG in SODIUM CHLORIDE 0.9% 1,000 ML IRRIGATION ONE (07:02)
--- NOTE | 2021-12-17 07:19 | P.ANPRN ---
Procedure Note - Anesthesia - Nerve Block Performed Right Adductor Canal Infusion Time Out Performed: Yes Date of Procedure: 12/17/21 Procedure Start Time: 06:33 Procedure Stop Time: 06:43 Location of Patient: PreOp Indication: Acute Post-Operative Pain, Requested by Surgeon Sedation Type: Sedate with meaningful contact maintained Preparation: Sterile Prep, Sterile Dressing Position: Supine Catheter: Indwelling Needle Types: Pajunk Needle Gauge: 18 Ultrasound used to visualize needle placement: Yes Ultrasound used to observe medication spread: Yes Injectate: 0.5% Ropivacaine (see comment for volume) (15 ml + 10 ml PF NS) Blood Aspirated: No Pain Paresthesia on Injection Noted: No Resistance on Injection: Normal Image Stored and Saved: Yes Events: Uneventful and Well Tolerated
--- NOTE | 2021-12-17 07:21 | P.ANPRN ---
Procedure Note - Anesthesia - Nerve Block Performed Right iPack Single Time Out Performed: Yes Date of Procedure: 12/17/21 Procedure Start Time: 06:45 Procedure Stop Time: 06:53 Location of Patient: PreOp Indication: Requested by Surgeon Sedation Type: Sedate with meaningful contact maintained Preparation: Sterile Prep Position: Left Lateral Needle Types: Pajunk Needle Gauge: 21 Ultrasound used to visualize needle placement: Yes Ultrasound used to observe medication spread: Yes Injectate: 0.5% Ropivacaine (see comment for volume) (15 ml + 10 ml PF NS) Blood Aspirated: No Pain Paresthesia on Injection Noted: No Resistance on Injection: Normal Image Stored and Saved: Yes Events: Uneventful and Well Tolerated
[2021-12-17] MEDS ORDERED: ROPIVACAINE 0.2%-NS ON-Q PUMP 1,090 MG, EMPTY PAIN BALL 1 EACH MISCELLANE PRN (07:33)
[2021-12-17] MEDS ORDERED: HYDROmorphone 0.5 MG/0.5 ML SYRINGE IVP PRN ×3 (07:59→08:43)
[2021-12-17] MEDS ORDERED: SCOPOLAMINE 1 MG/72 HR PATCH TRANSDERM ONE (07:59)
[2021-12-17] MEDS ORDERED: DEXAMETHASONE SOD PHOSPHATE 4 MG/ML 1 ML VIAL IV ONE (07:59)
[2021-12-17] MEDS ORDERED: MIDAZOLAM 2 MG/2 ML VIAL IV PRN (07:59)
--- NOTE | 2021-12-17 08:24 | P.OP ---
Date of Procedure: 12/17/21 Preoperative Diagnosis: Severe osteoarthritis right knee Postoperative Diagnosis: Severe osteoarthritis right knee Procedure(s) Performed: Right total knee arthroplasty Implants: Ann & Nephew Journey II CR Oxinium cruciate retaining femoral component size 3, right Ann [employer] Nephew Journey nonporous tibial baseplate size 2, right Ann [employer]hew Journey II, XLPE Deep Dished articular insert, size 11 mm, Size 1-2, right Ann [employer]hew Journey Jada II resurfacing patellar component, oval, 29 mm All components were cemented using Palacos R bone cement The articulation is Oxinium on polyethylene Anesthesia: spinal Surgeon: Gurmeet Macias Spout Liner Helper #1: Damari Beckwith Estimated Blood Loss (ml): 25 Pathology: other (Bone and cartilage) Condition: stable Disposition: PACU Indications for Procedure: After failure of conservative treatment we discussed the surgical and nonsurgical treatment options at length. Patient wishes to proceed with a total knee arthroplasty. Complications specific to this procedure were discussed at length, including but not limited to infection, bleeding, stiffness, and nerve injury. Covid-19 was also discussed at length with the patient, and they are aware of the current policies and procedures. The patient was given the option of delaying surgery, but they elect to proceed knowing these risks. Patient is aware of all these complications and informed consent was obtained Operative Findings: The operative findings are consistent with severe osteoarthritis the right knee Description of Procedure: Patient was seen in the preoperative area and the consent was reviewed and the operative site was marked with a skin marker. The patient verified the procedure and the operative site. An adductor canal pain catheter and an iPACK block was placed by anesthesia in the preoperative area. The patient was then brought to the operating room and given preoperative antibiotics intravenously. A gram of transexamic acid was given intravenously. A spinal anesthetic was administered by the anesthesia department. A tourniquet was placed on the upper thigh and the lower extremity was prepped with chlorhexidine and draped in usual sterile fashion. A universal timeout was then performed which confirmed the patient's name, surgical site, ALLERGIES, and consent. The lower extremity was then exsanguinated and tourniquet was inflated to 250 mmHg. A standard anterior midline approach to the knee was performed. The skin and subcutaneous tissue were sharply dissected down to the patellar tendon. A medial parapatellar arthrotomy was then performed. The knee was then extended, the patellar was everted, and the knee was again flexed. The infra-patellar fat pad was removed in order to enhance exposure. The anterior horns of both menisci were excised, and a release was performed to the posterior medial aspect of the knee. On gross visual inspection, there was complete loss of articular cartilage in the medial and patellofemoral joint spaces. There was also significant cartilage damage in the lateral compartment. There were multiple periarticular osteophytes globally about the knee which were then removed with a Ronguer. The femoral canal was then opened with the 9.5 mm intramedullary drill. The 8 mm intramedullary yara was then inserted into the femoral canal with the distal femoral cutting guide set for 5 of valgus. The distal femoral cutting block was then pinned in place. The intramedullary yara was then removed, and the distal femur was then cut. The cutting block was then removed and the cut was checked for symmetry. The resected bone was then measured to confirm the appropriate distal femoral resection. Next, the sizing guide was then placed and set for 3 external rotation based off of the epicondylar axis and Whitesides line. Pins were then placed and the drill holes, and the femur was sized with the sizing stylus. The pins were then removed, and the sizing guide was then removed. The spikes of the femoral block was then placed into the predrilled holes, and malleted into place. Two 45 mm pins were then placed into the fixation holes on the cutting block. An fortino wing was then used to ensure there would be no notching with the anterior cut. The anterior condyles were cut without notching. The anterior chord cut was then performed, followed by the posterior cut, posterior chamfer cut, and the anterior chamfer cut. The collateral ligaments were protected during the entire process. The cutting block was then removed. Any remaining bone and osteophytes were removed from the femur with a Ronguer. The femoral canal was plugged with autologous bone. Attention was then directed to the tibia. The remaining ACL was removed with a Ronguer, and the tibia was then gently subluxed forward with a large bent knee retractor. Any remaining menisci were excised. The posterior lateral corner was cauterized in order to coagulate the lateral geniculate artery. The extra medullary tibial cutting guide was then placed, set for the appropriate rotation, slope, and depth of resection. The proximal tibia cutting guide was then pinned in place. Proximal tibia was then cut and sized. The femoral trial was placed. A narrow saw blade was then used to remove the anterior intracondylar femoral bone. The CR notch trial was then placed. The tibial tr ial was placed with the appropriate-sized insert. The knee was able to fully extend and flex to 130 and was stable throughout all range of motion. The knee was then extended and the patella was everted. Patella was then measured, and then using an osteotomy guide, the patella was cut at the appropriate level. The patella was then measured and drilled and the patella trial was then placed. The knee was then taken through range of motion with the patella trial and the patella tracked normally using the no thumbs technique. The knee was then extended patella trial was then removed and the patella was everted. Knee was then flexed and lug holes were drilled through the femoral trial and the femoral trial was then removed. The tibial was then re-exposed, and the tibial broach guide was then pinned in place after it was set for the appropriate rotation to allow for the most coverage without overhang. The tibia was then reamed and broached. The cut surfaces of bone were then irrigated with pulsatile lavage. The knee was also irrigated with Irrisept solution. The components were then opened, the cement was mixed, and the components were then cemented in place. The cement was allowed to harden with the knee in full extension. After the cemented hardened, the tourniquet was released and hemostasis was obtained. A second gram of transexamic acid was given intravenously. The knee was again irrigated. The knee was again taken through range of motion and found to be stable throughout all range of motion of 0-130, and the patella tracked normally. The fascia was then closed with 0 Vicryl followed by #2 strata fix suture. The subcutaneous tissue was closed with 3-0 Vicryl and 3-0 strata fix. Exofin glue was used for the skin and placed with the knee in flexion. After the glue had dried, and Optafoam silver impregnated dressing was applied. The patient was then transferred to recovery room in stable condition. The administrative sales assistant DEVONTE Causey was required due the complexity surgery and the need for a skilled fitness assistant. She assisted in positioning, draping, retraction, and closure of the wound.
[2021-12-17] MEDS ORDERED: MAGNESIUM HYDROXIDE 2,400 MG/10 ML CUP PO PRN (08:43)
[2021-12-17] MEDS ORDERED: HYDROmorphone 1 MG/ML 1 ML SYRINGE IVP PRN (08:43)
[2021-12-17] MEDS ORDERED: ONDANSETRON 4 MG/2 ML VIAL IVP PRN (08:43)
[2021-12-17] MEDS ORDERED: NALOXONE 0.4 MG/ML 1 ML VIAL IV PRN (08:43)
[2021-12-17] MEDS ORDERED: NA PHOS,M-B/NA PHOS,DI-BA 133 ML ENEMA RECTAL PRN (08:43)
[2021-12-17] MEDS ORDERED: bisacodyL 10 MG SUPP RECTAL PRN (08:43)
--- NOTE | 2021-12-17 09:30 | XR ---
EXAMINATION TYPE: XR knee limited RT DATE OF EXAM: 12/17/2021 CLINICAL HISTORY: Right knee pain and arthritis status post total knee replacement. TECHNIQUE: Portable AP and crosstable lateral views of the right knee are obtained immediately posto peratively. COMPARISON: None FINDINGS: Metallic hardware from total right knee arthroplasty is seen and appears satisfactory in a lignment and position. There is evidence of recent surgery with diffuse subcutaneous gas and soft ti ssue swelling noted. IMPRESSION: METALLIC HARDWARE FROM TOTAL RIGHT KNEE ARTHROPLASTY IS SATISFACTORY IN ALIGNMENT.
[2021-12-17] MEDS: LACTATED RINGERS 1,000 ML IV SCH (11:15)
[2021-12-17] MEDS: HYDROcodone/APAP 7.5-325MG 1 EACH TAB PO PRN ×3 (11:27→21:35)
[2021-12-17] MEDS: SODIUM CHLORIDE 0.9% 1,000 ML IV SCH ×2 (13:05→23:53)
[2021-12-17] MEDS: PANTOPRAZOLE 40 MG TABLET PO SCH (15:02)
[2021-12-17] MEDS ORDERED: SENNOSIDES-DOCUSATE SODIUM 1 EACH TAB PO SCH (21:00)
[2021-12-17] MEDS ORDERED: ATORVASTATIN 20 MG TAB PO SCH (21:00)
[2021-12-17] MEDS ORDERED: MONTELUKAST 10 MG TAB PO SCH (21:00)
[2021-12-17] MEDS: ASPIRIN 325 MG TAB PO SCH (21:34)
--- NOTE | 2021-12-17 21:34 | P.CONS ---
History of Present Illness - Reason for Consult Consult date: 12/17/21 Medical management - Chief Complaint S/p right total knee arthroplasty - History of Present Illness Patient is a 61-year-old female with a known history of hypertension, hyperlipidemia, osteoarthritis, asthma and GERD was admitted to the hospital for elective right total knee arthroplasty. Patient is status postprocedure. Tolerated very well. Patient was able to walk to the bathroom. Complains of pain in the knee but fairly controlled with medication. Patient is already on nerve block. Denies any complaints of chest pain or shortness of breath. No nausea vomiting or abdominal pain or diarrhea. No dizziness or lightheadedness. No cough or sputum production. No fever no chills. Postoperatively SBP in 120s. Pulse ox 91% on room air. Laboratory data not available at this time. Review of Systems Constitutional: Patient denies any fever or chills . no Generalized weakness. Abdomen: Patient denied any nausea or vomiting or abd. pain Cardiovascular: Patient denies any chest pain or short of breath no palpitations. Respiratory: patient denied any cough . no sputum production. No shortness of breath Neurologic: Patient denied any numbness or tingling headache. Musculoskeletal: Patient denies any complaints of joint swelling or deformity. Patient does have some pain in the right knee. Skin: Negative Psychiatric: Negative Endocrine: No heat or cold intolerance. No recent weight gain. Genitourinary: No dysuria or hematuria. All other 14 point ROS negative except the above Past Medical History Past Medical History: Asthma, GERD/Reflux, Hyperlipidemia, Hypertension, Osteoarthritis (OA) Additional Past Medical History / Comment(s): Migraines and osteopenia. History of Any Multi-Drug Resistant Organisms: None Reported Past Surgical History: Section, Cholecystectomy, Hysterectomy, Orthopedic Surgery, Tonsillectomy Additional Past Surgical History / Comment(s): Right shoulder, right foot, arthroscopy right knee x 2, right elbow Past Anesthesia/Blood Transfusion Reactions: No Reported Reaction Additional Past Anesthesia/Blood Transfusion Reaction / Comm: had a hard time waking up with one surgery approx 20 yrs ago Smoking Status: Never smoker - Past Family History Mother Family Medical History: CVA/TIA, Myocardial Infarction ([place]) Additional Family Medical History / Comment(s): Mother had several MIs by the time she was 60 as well as stroke. Maternal grandmother had colon cancer. Brother(s) Family Medical History: Myocardial Infarction ([place]) Additional Family Medical History / Comment(s): Patient has 1 brother that at age 51 from a myocardial infarction. Patient has a second brother with no major medical problems. Sister(s) Family Medical History: Cancer Additional Family Medical History / Comment(s): Patient has one sister with cervical cancer. Father Family Medical History: Renal Disease Additional Family Medical History / Comment(s): Father at age 37 from end- stage renal disease secondary to a staph infection as a child. Patient has 3 sons and one has Crohn's. Son(s) Family Medical History: Renal Disease Additional Family Medical History / Comment(s): Crohn's disease. received a kidney transplant and is doing well Medications and Allergies Home Medications Medication Instructions Recorded Confirmed Type lisinopriL [Zestril] 20 mg PO BID 11/12/14 12/17/21 History Montelukast [Singulair] 10 mg PO HS 11/11/17 12/17/21 History Acetaminophen Tab [Tylenol] 650 mg PO Q6H PRN 12/10/21 12/17/21 History Omeprazole [PriLOSEC] 20 mg PO QAM 12/10/21 12/17/21 History Rosuvastatin [Crestor] 10 mg PO HS 12/10/21 12/17/21 History amLODIPine [Norvasc] 5 mg PO QAM 12/10/21 12/17/21 History Aspirin 325 mg PO BID #60 tab 12/17/21 Rx HYDROcodone/APAP 7.5-325MG [Louisa 1 - 2 tab PO Q6H PRN #32 tab 12/17/21 Rx 7.5-325] Sennosides [Senokot] 2 tab PO DAILY PRN #60 tablet 12/17/21 Rx Allergies Allergy/AdvReac Type Severity Reaction Status Date / Time azithromycin Allergy Rash/Hives Verified 12/17/21 05:47 Penicillins Allergy Rash/Hives Verified 12/17/21 05:47 all over yrs ago Sulfa (Sulfonamide Allergy Rash/Hives Verified 12/17/21 05:47 Antibiotics) head to toe Physical Exam Vitals: Vital Signs Temp Pulse Pulse Resp BP Pulse Ox 12/17/21 09:15 65 16 127/72 99 12/17/21 09:00 60 16 133/73 97 11/07/22 08:45 63 16 116/59 97 12/17/21 08:32 97 F L 73 16 113/56 96 12/17/21 07:03 72 17 146/73 100 12/17/21 06:10 97 F L 71 17 134/67 97 Intake and Output 12/16/21 12/17/21 12/17/21 22:59 06:59 14:59 Intake Total 200 801 Output Total 25 Balance 200 776 Intake: IV 200 801 Output: Estimated Blood Loss 25 Other: Weight 77.5 kg PHYSICAL EXAMINATION: Patient is lying in the bed comfortably, no acute distress, awake alert and oriented.. HEENT: Normocephalic. Neck is supple. Pupils reactive. Nostrils clear. Oral cavity is moist. Neck reveals no JVD, carotid bruits, or thyromegaly. CHEST EXAMINATION: Trachea is central. Symmetrical expansion. Lung gonzalez clear to auscultation and percussion. CARDIAC: Normal S1, S2 with no gallops. No murmurs ABDOMEN: Soft. Bowel sounds present. Nontender. No organomegaly. No abdominal bruits. Extremities: reveal no edema. No clubbing or cyanosis Neurologically awake, alert, oriented x3 with well-coordinated movements. No focal deficits noted Skin: No rash or skin lesions. Psychiatric: Coperative. Nonsuicidal, Musculoskeletal: No joint swelling or deformity. Right knee surgical site intact. No swelling. Normal range of motion. Assessment and Plan Assessment: Status post right total knee arthroplasty postoperative day 0 Hypertension controlled. Hyperlipidemia Asthma not in exacerbation GERD Osteoarthritis History of migraine headaches DVT prophylaxis Plan: Patient to be continued current pain medications, bowel regimen and encourage incentive spirometry. Patient will be started back home blood pressure medications including Norvasc and lisinopril as blood pressure tolerates and titrate as needed. Continue with GI and DVT prophylaxis. Continue other home medications and follow-up closely. Further recommendations based on clinical course. Thank you for your consult. Time with Patient: Greater than 30
[2021-12-17] MEDS: lisinopriL 20 MG TAB PO SCH (21:35)
[2021-12-18 02:27] VITALS: RESP 18
[2021-12-18] MEDS: HYDROcodone/APAP 7.5-325MG 1 EACH TAB PO PRN ×2 (03:07→08:32)
[2021-12-18] MEDS: LACTATED RINGERS 1,000 ML IV SCH (03:35)
--- NOTE | 2021-12-18 07:11 | P.PN ---
Progress Note - Text Progress Note Date: 12/18/21 Postoperative day # 1 status post total knee arthroplasty, and adductor canal catheter placed for postoperative analgesia, currently at ropivacaine 0.2% 8 mL per hour and continuous infusion, visual analogue scale is 3/10, patient using oral pain medication for breakthrough pain. Assessment and plan= Acute postoperative pain, adductor canal catheter for pain control, pain is well controlled we'll continue the same management.
[2021-12-18 07:50] VITALS: BP 129/72; PULSE 95; TEMP 97.5
[2021-12-18] MEDS: PANTOPRAZOLE 40 MG TABLET PO SCH (08:32)
[2021-12-18] MEDS: ASPIRIN 325 MG TAB PO SCH (08:32)
[2021-12-18] MEDS: lisinopriL 20 MG TAB PO SCH (08:32)
[2021-12-18] MEDS ORDERED: amLODIPine 5 MG TAB PO SCH (09:00)
--- NOTE | 2021-12-18 09:20 | P.DS ---
Providers Expected date of discharge: 12/18/21 Attending physician: Gurmeet Macias Consults: 12/17/21 08:43 Consult Physician Routine Consulting Provider: Luis Daniel Noel Consult Reason/Comments: medical management Do you want consulting provider notified?: Yes Primary care physician: Dieudonne Mccracken - Discharge Diagnosis(es) (1) Osteoarthritis of right knee Current Visit: Yes Status: Acute (2) S/P total knee arthroplasty Current Visit: Yes Status: Acute Hospital Course: This is a 61-year-old female with known history of degenerative arthritis of the right knee. The patient presented for evaluation as an outpatient. After discussion and consideration patient elects to proceed with total knee arthroplasty. The patient is seen preoperatively by Dr. Macias and medically cleared for surgery by their primary care physician. Patient is admitted to [facility] on 12/17/2021 for total knee arthroplasty. The procedure is performed without complication or sequelae. The patient is doing well postoperatively. Labs and vital signs are stable on day of discharge. On day of discharge patient's knee incision is healing well. There is minimal erythema. There is no drainage noted at this time. There is minimal soft tissue swelling to the knee. Patient has full foot and ankle motion without difficulty or pain. Calf is soft and nontender to palpation. Neurovascular status to the right lower extremity is intact. Patient is discharged home in good condition. Please see med rec for accurate list of home medications. Plan - Discharge Summary Discharge Rx Participant: No New Discharge Prescriptions: New Aspirin 325 mg PO BID #60 tab Sennosides [Senokot] 2 tab PO DAILY PRN #60 tablet PRN Reason: Constipation HYDROcodone/APAP 7.5-325MG [Rea 7.5-325] 1 - 2 tab PO Q6H PRN #32 tab PRN Reason: Pain No Action lisinopriL [Zestril] 20 mg PO BID Montelukast [Singulair] 10 mg PO HS Omeprazole [PriLOSEC] 20 mg PO QAM Acetaminophen Tab [Tylenol] 650 mg PO Q6H PRN PRN Reason: Pain amLODIPine [Norvasc] 5 mg PO QAM Rosuvastatin [Crestor] 10 mg PO HS Discharge Medication List lisinopriL [Zestril] 20 mg PO BID 11/12/14 [History] Montelukast [Singulair] 10 mg PO HS 11/11/17 [History] Acetaminophen Tab [Tylenol] 650 mg PO Q6H PRN 12/10/21 [History] Omeprazole [PriLOSEC] 20 mg PO QAM 12/10/21 [History] Rosuvastatin [Crestor] 10 mg PO HS 12/10/21 [History] amLODIPine [Norvasc] 5 mg PO QAM 12/10/21 [History] Aspirin 325 mg PO BID #60 tab 12/17/21 [Rx] HYDROcodone/APAP 7.5-325MG [Rea 7.5-325] 1 - 2 tab PO Q6H PRN #32 tab 12/17/21 [Rx] Sennosides [Senokot] 2 tab PO DAILY PRN #60 tablet 12/17/21 [Rx] Follow up Appointment(s)/Referral(s): Gurmeet Macias DO [Doctor of Osteopathic Medicine] - 2 Weeks Activity/Diet/Wound Care/Special Instructions: Weightbearing as tolerated with a walker. CPM 5-6h daily as tolerated. Leave dressing intact. Dressing may be removed by home care nurse or by patient in 7 days. Then change dressing twice daily until follow up. May shower with initial dressing intact and after removal. If dressing become saturated, please remove. Recommend use of compression stockings daily until follow up to help prevent swelling and blood clots. May remove at night before sleeping. Please take aspirin 325mg twice daily for 30 days to prevent blood clots. Please follow up with [facility] and call with any questions or concerns, . Discharge Disposition: HOME WITH HOME HEALTH SERVICES
[2021-12-18 10:56] LABS: Basophils # (A) 0.01 X 10*3/uL (0.00-0.10); Basophils % (A) 0.1 %; Eosinophils # (A) 0 X 10*3/uL (0.04-0.35); Eosinophils % (A) 0 %; HCT 32.5 % (37.2-46.3); HGB 11.1 g/dL (12.0-15.0); Immature Grans, Automated 0.4 %; Lymphocytes # (A) 1.54 X 10*3/uL (0.90-5.00); Lymphocytes % (A) 18.8 %; MCH 31.2 pg (27.0-32.0); MCHC 34.2 g/dL (32.0-37.0); MCV 91.3 fL (80.0-97.0); Monocytes % (A) 9.8 %; NRBC Per 100 WBC 0 /100 WBCS (0.0-0.0); Neutrophils % (A) 70.9 %; Platelet Count 182 X 10*3/uL (140-440); RBC 3.56 X 10*6/uL (4.10-5.20); WBC 8.18 X 10*3/uL (4.50-10.00)
[2021-12-18 11:14] LABS: African American GFR (CKD) 94.9 (60.0-200.0); Anion Gap 8.9 mmol/L (10.00-18.00); BUN/Creat Ratio 14.29 Ratio (12.00-20.00); Blood Urea Nitrogen 11.1 mg/dL (9.0-27.0); Calcium 9.4 mg/dL (8.7-10.3); Carbon Dioxide 26.3 mmol/L (20.0-27.5); Non-African American GFR(CKD) 81.9 (60.0-200.0); Potassium 4.3 mmol/L (3.5-5.5)
== END 2021-12-18 12:53 | disposition home health service (06) ==
LOC: OR 05:35 → 4SSUR 08:32 → OR 12-18 12:53
PROVIDERS: ATTEND Orthopaedic Surgery
DX: M17.11 Unilateral primary osteoarthritis, right knee (principal); G89.18 Other acute postprocedural pain; J45.909 Unspecified asthma, uncomplicated; K21.9 Gastro-esophageal reflux disease without esophagitis; I10 Essential (primary) hypertension; E78.5 Hyperlipidemia, unspecified; M19.90 Unspecified osteoarthritis, unspecified site; G43.909 Migraine, unspecified, not intractable, without status migrainosus; M85.80 Other specified disorders of bone density and structure, unspecified site; Z98.891 History of uterine scar from previous surgery; Z90.49 Acquired absence of other specified parts of digestive tract; Z90.710 Acquired absence of both cervix and uterus; Z90.89 Acquired absence of other organs; Z98.890 Other specified postprocedural states; Z82.3 Family history of stroke; Z82.49 Family history of ischemic heart disease and other diseases of the circulatory system; Z80.0 Family history of malignant neoplasm of digestive organs; Z79.1 Long term (current) use of non-steroidal anti-inflammatories (NSAID); Z79.82 Long term (current) use of aspirin; Z79.899 Other long term (current) drug therapy; Z88.1 Allergy status to other antibiotic agents; Z88.0 Allergy status to penicillin
CPT/HCPCS: 97116; 97161; 64999; 64448; 76942; 80048; 85025; 88300; 73560; 27447; C1713; C1776; C1751; J2250; J1100; J0690 ×2; J2405; J1170; J2795; J1790

== ENCOUNTER → 2023-01-24 | Outpatient (CLI) | payer MEDICAID ==
[2023-01-24 15:55] LABS: ALT 32 U/L (8-44); AST 27 U/L (13-35); Albumin 4.4 g/dL (3.8-4.9); Alkaline Phosphatase 63 U/L (41-126); Blood Urea Nitrogen 14.4 mg/dL (9.0-27.0); Calcium 10.2 mg/dL (8.7-10.3); Carbon Dioxide 25.5 mmol/L (21.6-31.8); Chloride 106 mmol/L (96-109); Chol/HDL Ratio 3.33 Ratio; Globulin 2.2 g/dL (1.6-3.3); Glucose 102 mg/dL (70-110); LDL Cholesterol,Calculated 96.9 mg/dL (0.0-131.0); Potassium 4.9 mmol/L (3.5-5.5); Sodium 143 mmol/L (135-145); T4, Free (Free Thyroxine) 1.21 ng/dL (0.80-1.80); Total Bilirubin 0.4 mg/dL (0.3-1.2); Total Protein 6.6 g/dL (6.2-8.2)
[2023-01-24 16:48] LABS: Basophils # (A) 0.03 X 10*3/uL (0.00-0.10); Basophils % (A) 0.7 %; Eosinophils # (A) 0.11 X 10*3/uL (0.04-0.35); Eosinophils % (A) 2.5 %; HGB 13.4 g/dL (12.0-15.0); Lymphocytes % (A) 31.9 %; MCH 31.5 pg (27.0-32.0); MCHC 33.5 g/dL (32.0-37.0); MCV 93.9 FL (80.0-97.0); Monocytes # (A) 0.41 X 10*3/uL (0.20-1.00); Monocytes % (A) 9.3 %; NRBC Per 100 WBC 0 X 10*3/uL (0.00-0.01); Neutrophils # (A) 2.42 X 10*3/uL (1.80-7.70); Neutrophils % (A) 55.1 %; Platelet Count 211 X 10*3/uL (140-440); RBC 4.26 X 10*6/uL (4.10-5.20); WBC 4.39 X 10*3/uL (4.50-10.00)
== END | disposition home or self-care (01) ==
LOC: LABWHC1 10:29
PROVIDERS: ATTEND Internal Medicine Geriatric Medicine
DX: E07.9 Disorder of thyroid, unspecified (principal); E55.9 Vitamin D deficiency, unspecified; R73.9 Hyperglycemia, unspecified; E78.5 Hyperlipidemia, unspecified
CPT/HCPCS: 36415; 80053; 80061; 82306; 83036; 84439; 84443; 85025

== ENCOUNTER → 2023-05-20 | Outpatient (CLI) | payer BC ==
--- NOTE | 2023-05-20 12:51 | BD ---
EXAMINATION TYPE: Axial Bone Density DATE OF EXAM: 05/20/2023 CLINICAL HISTORY: 62 years old Female. ICD-10 CODE: M81.0 AGE RELATED OSTEO Height: 61.5 Weight: 175.5 FRAX RISK QUESTIONS: Alcohol (3 or more units per day): no Family History (Parent hip fracture): no Glucocorticoids (More than 3mos): no History of Fracture in Adulthood: wrist Secondary Osteoporosis: 1. Type 1 Diabetes: no 2. Hyperthyroidism: no 3. Menopause before 45: age 38 4. Malnutrition: no 5. Chronic liver disease: no Rheumatoid Arthritis: no Current Tobacco Use: no RISK FACTORS HISTORY OF: Hip Fracture (Right/Left): no Spine Fracture: no History of Wrist Fracture: Lt Wrist When: age 52 Surgery to Spine/Hip(right/left)/Wrist (right/left): no MEDICATIONS: Thyroid Medications: no Osteoporosis Medications: no EXAM MEASUREMENTS: Bone mineral densitometry was performed using the Dipity System. Bone mineral density as measured about the Lumbar spine is: ----- L1-L4(G/cm2): 1.014 T Score Values are as follows: ----- L1: -2.3 ----- L2: -2.0 ----- L3: -0.6 ----- L4: -1.0 ----- L1-L4: -1.4 Z Score Values are as follows: ----- L1: -1.3 ----- L2: -1.0 ----- L3: 0.4 ----- L4: 0.0 ----- L1-L4: -0.4 Bone mineral density has: decreased -3.8 % since study of: 09/03/2017 Bone mineral density about the R hip (g/cm2): 0.910 Bone mineral density about the L hip (g/cm2): 1.050 T Score values are as follows: -----R Neck: -1.3 -----L Neck: -1.0 -----R Total: -0.8 -----L Total: 0.3 Z Score values are as follows: -----R Neck: -0.2 -----L Neck: 0.1 -----R Total: 0.0 -----L Total: 1.1 Bone mineral density has: decreased -1.4 % since study of: 09/03/2017 FRAX%s: The graph provided illustrates a 13.0% chance for a major osteoporotic fx and a 1.1.0141% hiwot nce for the hips probability for fx in 10 years time. IMPRESSION: Normal (Values between +1 and -1 indicate normal bone mass). Consider repeating this study in 5 year s or sooner if there is some new clinical indication. NOTE: T-SCORE=SD OF THE YOUNG ADULT MEAN.
--- NOTE | 2023-05-21 15:14 | MM ---
Reason for Exam: Screening (asymptomatic). Last mammogram was performed 1 year(s) and 2 month(s) ago. Patient History: Menarche at age 10. First Full-Term at age 21. Left ovary removed at age 38. Right ovary removed at age 38. Hysterectomy at age 33. Postmenopausal. Patient has history of breast feeding. Estrogen for 1 year, 6 months, from age 38 until age 40. Maternal cousin had breast cancer, age 25. Risk Values: Chelsi 5 year model risk: 1.5%. NCI Lifetime model risk: 6.6%. Prior Study Comparison: 09/03/2017 Bilateral Screening Mammogram, [facility]. 10/19/2018 Bilateral Screening Mammogram, [facility]. 01/26/2020 Bilateral Screening Mammogram, [facility]. 03/30/2021 Bilateral Screening Mammogram, [facility]. 04/03/2022 Bilateral MG screening mammo w CAD, [facility]. Tissue Density: There are scattered areas of fibroglandular density. Findings: Analyzed By CAD. There is no suspicious group of microcalcifications or new suspicious mass in either breast. Overall Assessment: Benign, BI-RAD 2 Management: Screening Mammogram of both breasts in 1 year. . Patient should continue monthly self-breast exams. A clinical breast exam by your physician is recommended on an annual basis. This exam should not preclude additional follow-up of suspicious palpable abnormalities. Note on Chelsi scores and lifetime risk: 1. A Chelsi score greater than 3% is considered moderate risk. If this is the case, consider specialist referral to assess eligibility for a risk reducing agent. 2. If overall lifetime risk for the development of breast cancer is 20% or higher, the patient may qualify for future screening with alternating mammogram and breast MRI. Electronically signed and approved by: El Rivera M.D. Radiologis
== END | disposition home or self-care (01) ==
LOC: RADMAMWWP 07:06
PROVIDERS: ATTEND Internal Medicine Geriatric Medicine
DX: Z12.31 Encounter for screening mammogram for malignant neoplasm of breast (principal); M85.89 Other specified disorders of bone density and structure, multiple sites; M81.0 Age-related osteoporosis without current pathological fracture; Z78.0 Asymptomatic menopausal state; Z80.3 Family history of malignant neoplasm of breast
CPT/HCPCS: 77063; 77067; 77080

== ENCOUNTER → 2024-01-28 | Outpatient (CLI) | payer BC ==
[2024-01-28 10:35] LABS: Basophils # (A) 0.03 X 10*3/uL (0.00-0.10); Basophils % (A) 0.7 %; Eosinophils # (A) 0.08 X 10*3/uL (0.04-0.35); Eosinophils % (A) 1.9 %; HCT 38.8 % (37.2-46.3); HGB 13.1 g/dL (12.0-15.0); Lymphocytes # (A) 1.49 X 10*3/uL (0.90-5.00); Lymphocytes % (A) 35.1 %; MCH 31.4 pg (27.0-32.0); MCHC 33.8 g/dL (32.0-37.0); Monocytes # (A) 0.24 X 10*3/uL (0.20-1.00); Monocytes % (A) 5.7 %; NRBC Per 100 WBC 0 X 10*3/uL (0.00-0.01); Neutrophils # (A) 2.39 X 10*3/uL (1.80-7.70); Neutrophils % (A) 56.4 %; Platelet Count 186 X 10*3/uL (140-440); RBC 4.17 X 10*6/uL (4.10-5.20); RDW 12.5 % (11.5-14.5); WBC 4.24 X 10*3/uL (4.50-10.00)
[2024-01-28 11:12] LABS: ALT 24 U/L (8-44); AST 23 U/L (13-35); Albumin 4.2 g/dL (3.8-4.9); Alkaline Phosphatase 58 U/L (41-126); Blood Urea Nitrogen 11.6 mg/dL (9.0-27.0); Calcium 9.4 mg/dL (8.7-10.3); Carbon Dioxide 25.6 mmol/L (21.6-31.8); Chloride 106 mmol/L (96-109); Chol/HDL Ratio 2.94 Ratio; Globulin 2.1 g/dL (1.6-3.3); Glucose 106 mg/dL (70-110); LDL Cholesterol,Calculated 84.2 mg/dL (0.0-131.0); Potassium 4.6 mmol/L (3.5-5.5); Sodium 143 mmol/L (135-145); T4, Free (Free Thyroxine) 1.16 ng/dL (0.80-1.80); Total Bilirubin 0.4 mg/dL (0.3-1.2); Total Protein 6.3 g/dL (6.2-8.2)
== END | disposition home or self-care (01) ==
LOC: LABWHC1 06:59
PROVIDERS: ATTEND Physician Assistant
DX: E55.9 Vitamin D deficiency, unspecified (principal); E78.5 Hyperlipidemia, unspecified; E07.9 Disorder of thyroid, unspecified; R73.9 Hyperglycemia, unspecified
CPT/HCPCS: 36415; 80053; 80061; 82306; 83036; 84439; 84443; 85025

== ENCOUNTER → 2024-08-30 | Outpatient (CLI) | payer MEDICARE ==
[2024-08-30 15:25] LABS: Basophils # (A) 0.03 X 10*3/uL (0.00-0.10); Basophils % (A) 0.7 %; Eosinophils # (A) 0.08 X 10*3/uL (0.04-0.35); Eosinophils % (A) 1.9 %; HCT 41.1 % (37.2-46.3); HGB 13.9 g/dL (12.0-15.0); Immature Grans, Automated 0.20 %; Lymphocytes # (A) 1.41 X 10*3/uL (0.90-5.00); Lymphocytes % (A) 33.0 %; MCH 31.0 pg (27.0-32.0); MCHC 33.8 g/dL (32.0-37.0); MCV 91.7 FL (80.0-97.0); Monocytes # (A) 0.29 X 10*3/uL (0.20-1.00); Monocytes % (A) 6.8 %; NRBC Per 100 WBC 0 X 10*3/uL (0.00-0.01); Neutrophils # (A) 2.45 X 10*3/uL (1.80-7.70); Neutrophils % (A) 57.4 %; Platelet Count 156 X 10*3/uL (140-440); RBC 4.48 X 10*6/uL (4.10-5.20); RDW 12.5 % (11.5-14.5); WBC 4.27 X 10*3/uL (4.50-10.00)
[2024-08-30 16:12] LABS: ALT 27 U/L (8-44); AST 24 U/L (13-35); Albumin 4.3 g/dL (3.8-4.9); Albumin/Globulin Ratio 2.05 Ratio (1.60-3.17); Alkaline Phosphatase 57 U/L (41-126); Anion Gap 11.70 mmol/L (4.00-12.00); BUN/Creat Ratio 16.12 Ratio (12.00-20.00); Blood Urea Nitrogen 12.9 mg/dL (9.0-27.0); Calcium 9.8 mg/dL (8.7-10.3); Carbon Dioxide 24.3 mmol/L (21.6-31.8); Chloride 107 mmol/L (96-109); Cholesterol 186.00 mg/dL (0.00-200.00); Globulin 2.1 g/dL (1.6-3.3); Glucose 105 mg/dL (70-110); HDL Cholesterol 57.90 mg/dL (40.00-60.00); LDL Cholesterol,Calculated 105.1 mg/dL (0.0-131.0); Magnesium 1.8 mg/dL (1.5-2.4); Potassium 4.4 mmol/L (3.5-5.5); Sodium 143 mmol/L (135-145); Total Protein 6.4 g/dL (6.2-8.2); Triglycerides 115.00 mg/dL (0.00-149.00); VLDL Calculation 23.00 mg/dL (5.00-40.00)
[2024-08-30 16:13] LABS: T4, Free (Free Thyroxine) 1.21 ng/dL (0.80-1.80)
== END | disposition home or self-care (01) ==
LOC: LABWHC1 09:55
PROVIDERS: ATTEND Internal Medicine Geriatric Medicine
DX: Z00.00 Encounter for general adult medical examination without abnormal findings (principal); I10 Essential (primary) hypertension; I49.9 Cardiac arrhythmia, unspecified; E55.9 Vitamin D deficiency, unspecified; E78.01 Familial hypercholesterolemia; R73.9 Hyperglycemia, unspecified
CPT/HCPCS: 36415; 80053; 80061; 82306; 83036; 83735; 84439; 84443; 85025